=== PATIENT | female | born 1995 | race Caucasian/White ===

== ENCOUNTER 2019-05-05 14:00 | Emergency (ER) | payer MEDICARE, MEDICAID, SELFPAY ==
[2019-05-05 14:02] VITALS: BP 122/75; PULSE 83; RESP 15; TEMP 37.1; O2SAT 99; BMI 35.4
[2019-05-05 17:30] VITALS: BP 139/61; PULSE 77; RESP 16; O2SAT 100
--- NOTE | 2019-05-05 17:32 | ED_ITS ---
HPI - Abdominal Pain <Dara Eddy MD - Last Filed: 05/06/19 20:41> General Chief Complaint: Abdominal Pain Stated Complaint: LEFT SIDE PAIN Time Seen by Provider: 05/05/19 16:43 Source: patient Mode of arrival: ambulatory Limitations: no limitations History of Present Illness HPI narrative: Patient comes to the emergency department complaining of left lower quadrant pain that started about a week and half ago. Patient states it comes in waves and is not associated with any other symptoms. No dysuria. No hematuria. No constipation or diarrhea. No blood in her stools. No melena. No nausea or vomiting. No fevers. Patient has no history of diverticulitis. She does have a history of ovarian cysts, and the last time she had ultrasound was about 2 and half years ago. No other complaints at this time. Related Data Home Medications Medication Instructions Recorded Confirmed cetirizine [Zyrtec] 10 mg PO DAILY 05/05/19 05/06/19 Previous Rx's Medication Instructions Recorded ondansetron 4 mg PO Q6H PRN #7 tab 05/06/19 Allergies Allergy/AdvReac Type Severity Reaction Status Date / Time No Known Drug Allergies Allergy Verified 05/05/19 14:02 Review of Systems <Dara Eddy MD - Last Filed: 05/06/19 20:41> Constitutional Constitutional: Denies chills, Denies fatigue, Denies fever(s), Denies frequent falls, Denies lethargy and Denies weakness Eyes Eyes: Denies change in vision, Denies eye discharge, Denies irritation and Denies loss of vision ENT Ears, Nose, Mouth, and Throat: Denies change in voice, Denies dizziness, Denies neck pain, Denies sore throat and Denies throat swelling Cardiovascular Cardiovascular: Denies chest pain, Denies irregular heart rhythm, Denies lightheadedness, Denies palpitations, Denies dyspnea, Denies dyspnea on exertion and Denies orthopnea Respiratory Respiratory: Denies cough, Denies dyspnea, Denies dyspnea on exertion and Denies wheezing Gastrointestinal Gastrointestinal: Reports abdominal pain, Denies change in bowel habits, Denies diarrhea, Denies nausea and Denies vomiting Genitourinary Genitourinary: Denies hematuria, Denies flank pain, Denies urinary incontinence and Denies urinary urgency Musculoskeletal Musculoskeletal: Denies back pain, Denies muscle weakness, Denies neck pain, Denies numbness and Denies tingling Integumentary/Breasts Skin/Breast: Denies pruritus, Denies erythema, Denies rash and Denies wounds Neurologic Neurologic: Denies behavioral changes, Denies confusion, Denies dizziness, Denies frequent falls, Denies loss of vision, Denies numbness, Denies tingling and Denies weakness Psychiatric Psychiatric: Denies anxiety, Denies behavioral changes, Denies confusion, Denies depression, Denies homicidal ideation and Denies suicidal ideation Endocrine Endocrine: Denies fatigue, Denies flushing and Denies palpitations Hematologic/Lymphatic Hematologic/Lymphatic: Denies easy bruising Allergic/Immunologic Allergic/Immunologic: Denies urticaria, Denies throat swelling and Denies wheezing PFSH <Dara Eddy MD - Last Filed: 05/06/19 20:41> Medical History Healthy adult (Acute) Surgical History No pertinent past surgical history (Acute) Social History Smoking Status: Unknown if ever smoked Social History Smoking Status: Unknown if ever smoked Exam <Dara Eddy MD - Last Filed: 05/06/19 20:41> Initial Vital Signs Initial Vital Signs: Vital Signs Temperature 98.7 F 05/05/19 14:02 Pulse Rate 83 05/05/19 14:02 Respiratory Rate 15 05/05/19 14:02 Blood Pressure 122/75 05/05/19 14:02 Pulse Oximetry 99 05/05/19 14:02 Const General: cooperative and well developed Nutritional Appearance: well nourished Orientation: alert, awake, oriented x3 and not confused [facility] Head: normocephalic and atraumatic Ears: external ears normal and TM's normal bilaterally Nose: external nose normal and No nasal discharge Face and sinus: sinuses nontender, face symmetric, no sinus tenderness and No dry mucous membranes Mouth: oral mucosae normal and moist mucous membranes Teeth and gingiva: dentition normal Throat: tonsils normal and uvula midline Eyes General: appearance normal, both eyes and all related structures Eyelids: eyelids normal Conjunctivae: conjunctivae normal Sclera: sclerae normal Pupils: PERRL EOM: EOM intact bilaterally Neck Neck: normal visual inspection, trachea midline, No lymphadenopathy, No midline deformity and No JVD Lymphatic: No lymphedema Chest Chest: normal inspection of the chest Resp Effort & Inspection: normal respiratory effort, able to speak in complete sentences, no respiratory distress and no use of accessory muscles Auscultation: clear to auscultation bilaterally, no rales, no rhonchi and no wheezes Cardio Rate: regular rate Rhythm: regular rhythm Heart Sounds: no click, no gallops, no murmurs and no rubs Pulses: normal peripheral pulses GI Inspection: non-distended Palpation: soft, no hepatosplenomegaly, No guarding, No pulsatile mass and tender (Moderate, left pelvis) Back/Spine/Pelvis Back: No CVA tenderness Cervical Spine: cervical ROM normal and No pain with cervical ROM Thoracic/Lumbar Spine: thoracic and lumbar spine normal to inspection Skin General: no rashes or lesions noted, No jaundice and No petechiae Neuro General: alert, oriented x3, gait normal and no focal motor deficits Speech: speech normal Extrem General: full ROM, no clubbing, cyanosis or edema, no pedal edema and no calf tenderness Psych Appearance: well kempt Mental Status: mental status grossly normal Attitude: cooperative Thought Content: normal and suicidality Judgment: judgment good <Quiana Hernandez DO - Last Filed: 05/06/19 00:44> Initial Vital Signs Initial Vital Signs: Vital Signs Temperature 98.7 F 05/05/19 14:02 Pulse Rate 83 05/05/19 14:02 Respiratory Rate 15 05/05/19 14:02 Blood Pressure 122/75 05/05/19 14:02 Pulse Oximetry 99 05/05/19 14:02 Course <Dara Eddy MD - Last Filed: 05/06/19 20:41> Course Course Narrative: Patient was worked up with a POC urine, which was unremarkable. Ultrasound was ordered of the pelvis, and is pending at this time. Patient has been signed out to Dr. Hernandez, pending ultrasound. Orders Ordered: Discontinued Medications Ibuprofen (Advil) 800 mg PO NOW ONE Stop: 05/05/19 20:10 Last Admin: 05/05/19 20:15 Dose: 800 mg Documented by: MAYI Vital Signs Vital signs: Vital Signs - 8 hr 05/05/19 17:30 05/05/19 20:22 Pulse Rate 77 80 Respiratory Rate 16 17 Blood Pressure [Right Arm] 139/61 119/82 Pulse Oximetry 100 98 <Quiana Hernandez DO - Last Filed: 05/06/19 00:44> Orders Ordered: Discontinued Medications Ibuprofen (Advil) 800 mg PO NOW ONE Stop: 05/05/19 20:10 Last Admin: 05/05/19 20:15 Dose: 800 mg Documented by: MAYI Vital Signs Vital signs: Vital Signs - 8 hr 05/05/19 17:30 05/05/19 20:22 Pulse Rate 77 80 Respiratory Rate 16 17 Blood Pressure [Right Arm] 139/61 119/82 Pulse Oximetry 100 98 MDM - Abdominal Pain <Dara Eddy MD - Last Filed: 05/06/19 20:41> Lab Data Point of care testing: Point of Care Testing Test Results Negative Urine Dip Bedside Urine Glucose Negative Bedside Urine Bilirubin - Negative Bedside Urine Ketone - Negative Urine Specific [place] 1.030 Bedside Urine Occult Blood - Negative Bedside Urine pH 5.5 Bedside Urine Protein - Negative Bedside Urine Urobilinogen - Negative Bedside Urine Nitrite - Negative Bedside Urine Leukocytes - Negative Esterase <Quiana Hernandez DO - Last Filed: 05/06/19 00:44> Lab Data Point of care testing: Point of Care Testing Test Results Negative Urine Dip Bedside Urine Glucose Negative Bedside Urine Bilirubin - Negative Bedside Urine Ketone - Negative Urine Specific [place] 1.030 Bedside Urine Occult Blood - Negative Bedside Urine pH 5.5 Bedside Urine Protein - Negative Bedside Urine Urobilinogen - Negative Bedside Urine Nitrite - Negative Bedside Urine Leukocytes - Negative Esterase Imaging Data pelvic US: Radiologist's impression: PROCEDURE: US PELVIC COMPLETE INDICATIONS: LEFT PELVIC PAIN TECHNIQUE: Real-time scanning was performed of the pelvic organs, with image documentation. Additional endovaginal scanning was necessary due to incomplete visualization of the adnexal and endometrial structures by transabdominal scanning. COMPARISON: None. FINDINGS: Transabdominal scanning: Limited scanning through the kidneys shows no hydronephrosis. No pathologic free abdominal or pelvic fluid. Endovaginal scanning: Uterus: Uterus is normal in size at 6.2 x 3.3 x 3.3 cm. The endometrium measures 11 mm in combined thickness. Ovaries: The right ovary measures 2.4 x 1.8 x 1.5 cm and has a normal echotexture. There is expected right ovarian blood flow. The left ovary measures 6.7 x 6.9 x 5.8 c m. There is normal left ovarian blood flow. IMPRESSION: 1. Large left ovarian cyst. Annual sonographic surveillance recommended. 2. No findings to suggest ovarian torsion at this time. Normal bilateral Doppler waveforms. Dictated by: Debora Mckeon M.D. on 05/05/2019 at 19 MDM Narrative Medical decision making narrative: Patient signed out to me by Dr. Eddy I have done an independent exam and seen evaluated patient myself. She has mild left lower quadrant pain ultrasound positive for ovarian cyst. Recommended ibuprofen Tylenol if needed for pain and follow up with repeat ultrasound in a few months Discharge Plan Departure Patient Disposition: Home Clinical Impression: Ovarian cyst Qualifiers: Laterality: left Qualified Code(s): N83.202 - Unspecified ovarian cyst, left side Discharge Date/Time: 05/05/19 20:30 Instructions: Ovarian Cyst Activity Restrictions/Additional Instructions: *You have been diagnosed with left ovarian cyst *What to do: Recommend repeating ultrasound in 2-3 months *Continue to take medications as directed *Follow up with your primary care provider in 2-3 days *Return to ER if you should have increasing pain or any new, worsening or concerning symptoms Prescriptions: No Action cetirizine [Zyrtec] 10 mg Tablet 10 mg PO DAILY RF: 0 ondansetron 4 mg tablet,disintegrating 4 mg PO Q6H PRN (Reason: nausea and vomiting) Qty: 7 RF: 0
--- NOTE | 2019-05-05 17:40 | DI.US.S_ITS ---
PROCEDURE: US PELVIC COMPLETE INDICATIONS: LEFT PELVIC PAIN TECHNIQUE: Real-time scanning was performed of the pelvic organs, with image documentation. Additional endovaginal scanning was necessary due to incomplete visualization of the adnexal and endometrial structures by transabdominal scanning. COMPARISON: None. FINDINGS: Transabdominal scanning: Limited scanning through the kidneys shows no hydronephrosis. No pathologic free abdominal or pelvic fluid. Endovaginal scanning: Uterus: Uterus is normal in size at 6.2 x 3.3 x 3.3 cm. The endometrium measures 11 mm in combined thickness. Ovaries: The right ovary measures 2.4 x 1.8 x 1.5 cm and has a normal echotexture. There is expected right ovarian blood flow. The left ovary measures 6.7 x 6.9 x 5.8 cm. There is normal left ovarian blood flow. IMPRESSION: 1. Large left ovarian cyst. Annual sonographic surveillance recommended. 2. No findings to suggest ovarian torsion at this time. Normal bilateral Doppler waveforms. Dictated by: Debora Mckeon M.D. on 05/05/2019 at 19:47 Approved by: Debora Mckeon M.D. on 05/05/2019 at 19:49
[2019-05-05] MEDS: IBUPROFEN 400 MG TABLET 800 MG PO (20:15)
[2019-05-05 20:22] VITALS: BP 119/82; PULSE 80; RESP 17; O2SAT 98
== END 2019-05-05 20:30 | disposition home or self-care (01) ==
PROVIDERS: Emergency Provider Emergency Medicine
DX: N83.202 Unspecified ovarian cyst, left side (principal)
CPT/HCPCS: 76856; 81003; 81025; 99282; 99283

== ENCOUNTER 2019-05-06 10:01 | Emergency (ER) | payer MEDICARE, MEDICAID, SELFPAY ==
[2019-05-06 10:16] VITALS: BP 140/80; PULSE 74; RESP 18; TEMP 36.6; O2SAT 100; BMI 35.5
[2019-05-06 12:09] LABS: Add Manual Diff / Slide Review NO; Basophils Absolute Auto 100 /uL (0-100); Basophils Percent Auto 0.5 % (0-2); Eosinophils Absolute Auto 100 /uL (0-450); Eosinophils Percent Auto 0.9 % (2-4); Hematocrit 40.6 % (36-46); Hemoglobin 13.5 g/dL (12.0-16.0); Lymphocytes Absolute Auto 2500 /uL (1100-4500); Lymphocytes Percent Auto 19.5 % (25-40); Mean Corpuscular HGB Conc 33.3 % (30-36); Mean Corpuscular Volume 84.2 fL (80-100); Monocytes Absolute Auto 600 /uL (0-900); Neutrophils Absolute Auto 9400 /uL (1500-7000); Neutrophils Percent Auto 74.1 % (50-75); Platelet Count 292 X10^3/uL (150-400); Red Blood Cell Count 4.82 X10^6/uL (4.0-5.2); Red Cell Distribution Width 15.3 % (11.6-14.8); White Blood Cell Count 12.7 X10^3/uL (4.5-11.0)
[2019-05-06] MEDS: ONDANSETRON 4 MG/2 ML INJ IV (12:10)
[2019-05-06] MEDS: SODIUM CHLORIDE 0.9% 1,000 ML 1000 ML IV (12:10)
[2019-05-06 12:14] LABS: Alanine Aminotransferase 19 IU/L (9-52); Albumin 4.2 g/dL (3.5-5.0); Albumin Globulin Ratio 1.3 (1.0-2.8); Alkaline Phosphatase 81 U/L (38-126); Aspartate Aminotransferase 27 IU/L (14-36); Bilirubin Total 0.9 mg/dL (0.2-1.3); Blood Urea Nitrogen 11 mg/dL (7-17); Calcium 9.3 mg/dL (8.4-10.2); Carbon Dioxide 22 mmol/L (22-32); Chloride 107 mmol/L (98-107); Estimated Glomerular Filt Rate > 60.0 mL/min (>60); Globulin 3.3 g/dL (1.7-4.1); Glucose 90 mg/dL (70-100); HEMOLYSIS 17 (0-50); Sodium 141 mmol/L (137-145); Total Protein 7.5 g/dL (6.3-8.2)
--- NOTE | 2019-05-06 12:17 | ED_ITS ---
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 She states she vomited about 4 times and was unable to keep liquids down. She also states the pain in her abdomen that she was seen for yesterday has significantly decreased. She denies any abdominal pain at this time, fevers, chills, diarrhea, constipation, dysuria, blood in her urine, shortness breath, chest pain, or sick contacts. She states she does work at [employer] and thinks she may have caught something at work. Patient also states that she has not had problems with her intestinal tract since 2011, she sees a GI specialist yearly and has schedule appointment in the next week for yearly follow-up. She states the symptoms do not feel like they did in the past when she needed surgery. MD complaint: nausea and vomiting Related Data Home Medications Medication Instructions Recorded Confirmed cetirizine [Zyrtec] 10 mg PO DAILY 05/05/19 05/06/19 Previous Rx's Medication Instructions Recorded ondansetron 4 mg PO Q6H PRN #7 tab 05/06/19 Allergies Allergy/AdvReac Type Severity Reaction Status Date / Time No Known Drug Allergies Allergy Verified 05/05/19 14:02 Review of Systems <KAREN Jean-Baptiste - Last Filed: 05/06/19 23:25> Review of Systems Narrative: REVIEW OF SYSTEMS: GENERAL: Denies fever, chills, malaise, or wt. loss. HENT: No head trauma, sore throat, or dysphagia. EYES: No loss of vision, double vision, eye pain, or irritation. CARDIOVASCULAR: No chest pain, palpitations, or orthopnea. RESPIRATORY: No shortness of breath or cough. GASTROINTESTINAL: Complains of nausea and vomiting, see HPI GENITOURINARY: No flank pain, urinary incontinence, hesitancy, frequency, or dysuria. No vaginal discharge or dyspareunia. Denies concerns for STIs MUSCULOSKELETAL: No pain, weakness, or trauma. INTEGUMENTARY: No rash, lesions, or pruritus. NEURO: No numbness, tingling, memory loss, confusion, or headaches. PSYCH: No behavior or mood changes. PFSH <KAREN Jean-Baptiste - Last Filed: 05/06/19 23:25> Medical History Healthy adult (Acute) Ovarian cyst (Acute) Surgical History No pertinent past surgical history (Acute) Social History Smoking Status: Unknown if ever smoked Social History Smoking Status: Unknown if ever smoked Exam <KAREN Jean-Baptiste - Last Filed: 05/06/19 23:25> Initial Vital Signs Initial Vital Signs: Vital Signs Temperature 97.8 F 05/06/19 10:16 Pulse Rate 74 05/06/19 10:16 Respiratory Rate 18 05/06/19 10:16 Blood Pressure 140/80 05/06/19 10:16 Pulse Oximetry 100 05/06/19 10:16 PHYSICAL EXAMINATION: GENERAL: Well groomed, alert, and cooperative. Answers questions promptly and appropriately. Vital signs noted. HENT: Normocephalic, atraumatic. Hearing intact. Oral mucosa is pink and moist. EYES: Conjunctiva pink, sclera white, no periorbital swelling. CARDIOVASCULAR: S1 and S2 sounds normal. Regular rate and rhythm, no murmurs, clicks, or bruits. No pedal edema. RESPIRATORY: Normal respiratory rate, trachea midline, airway patent. No stridor, nasal flaring or accessory muscle use. Lungs are clear in all [place] without wheeze, rhonchi, or crackles. GASTROINTESTINAL: Bowel sounds normoactive. Abdomen is soft and non-tender. No organomegaly, no palpable masses. GENITALURINARY: No flank tenderness. MUSCULOSKELETAL: Normal gait and coordination. Equal tone and mass bilaterally. EXTREMITIES: CMS intact, no pedal edema. SKIN: Warm, dry, soft, appropriate color for ethnicity. No lesions, rashes, or wounds. NEURO: Alert and Oriented X 3. Good coordination. No ataxia, or sensory deficits, or cognitive issues. PSYCH: Appropriate affect and mood. <Dara Eddy MD - Last Filed: 05/09/19 01:58> Initial Vital Signs Initial Vital Signs: Vital Signs Temperature 97.8 F 05/06/19 10:16 Pulse Rate 74 05/06/19 10:16 Respiratory Rate 18 05/06/19 10:16 Blood Pressure 140/80 05/06/19 10:16 Pulse Oximetry 100 05/06/19 10:16 Course <KAREN Jean-Baptiste - Last Filed: 05/06/19 23:25> Orders Ordered: Discontinued Medications Sodium Chloride (Normal Saline 0.9%) 1,000 mls @ 1,000 mls/hr IV BOLUS ONE Stop: 05/06/19 13:04 Last Infusion: 05/06/19 13:10 Dose: 0 mls/hr Documented by: Admin: 05/06/19 12:10 Dose: 1,000 mls/hr Documented by: LUTHER Ketorolac Tromethamine (Toradol) 30 mg IM NOW ONE Stop: 05/06/19 13:12 Last Admin: 05/06/19 13:35 Dose: Not Given Documented by: LUTHER Ketorolac Tromethamine (Toradol) 30 mg IV NOW ONE Stop: 05/06/19 13:17 Last Admin: 05/06/19 13:31 Dose: 30 mg Documented by: LUTHER Ondansetron HCl (Zofran) 4 mg IV NOW ONE Stop: 05/06/19 12:06 Last Admin: 05/06/19 12:10 Dose: 4 mg Documented by: LUTHER Reevaluation(s) Reevaluation #1: Patient reported resolution of symptoms after IV fluids administration of Zofran. She stated she was ready to go after this. Additio leo, she was able to tolerate foods and fluids p.o. Consultations Consultation #1: Patient staffed Dr. Eddy. Vital Signs Vital signs: Vital Signs - 8 hr 05/06/19 10:16 Temperature 97.8 F Pulse Rate 74 Respiratory Rate 18 Blood Pressure 140/80 Pulse Oximetry 100 <Dara Eddy MD - Last Filed: 05/09/19 01:58> Orders Ordered: Discontinued Medications Sodium Chloride (Normal Saline 0.9%) 1,000 mls @ 1,000 mls/hr IV BOLUS ONE Stop: 05/06/19 13:04 Last Infusion: 05/06/19 13:10 Dose: 0 mls/hr Documented by: Admin: 05/06/19 12:10 Dose: 1,000 mls/hr Documented by: LUTHER Ketorolac Tromethamine (Toradol) 30 mg IM NOW ONE Stop: 05/06/19 13:12 Last Admin: 05/06/19 13:35 Dose: Not Given Documented by: LUTHER Ketorolac Tromethamine (Toradol) 30 mg IV NOW ONE Stop: 05/06/19 13:17 Last Admin: 05/06/19 13:31 Dose: 30 mg Documented by: LUTHER Ondansetron HCl (Zofran) 4 mg IV NOW ONE Stop: 05/06/19 12:06 Last Admin: 05/06/19 12:10 Dose: 4 mg Documented by: LUTHER Vital Signs Vital signs: Vital Signs - 8 hr 05/06/19 10:16 Temperature 97.8 F Pulse Rate 74 Respiratory Rate 18 Blood Pressure 140/80 Pulse Oximetry 100 MDM - Nausea/Vomiting/Diarrhea <KAREN Jean-Baptiste - Last Filed: 05/06/19 23:25> Medical Records Attestation: I reviewed the patient's medical records. Lab Data Attestation: I reviewed the patient's lab results. Result diagrams: 05/06/19 11:50 05/06/19 11:50 Labs: Lab Results 05/06/19 05/06/19 Range/Units 11:50 11:50 WBC 12.7 H (4.5-11.0) X10^3/uL RBC 4.82 (4.0-5.2) X10^6/uL Hgb 13.5 (12.0-16.0) g/dL Hct 40.6 (36-46) % MCV 84.2 (80-100) fL MCH 28.0 (26-34) PG MCHC 33.3 (30-36) % RDW 15.3 H (11.6-14.8) % Plt Count 292 (150-400) X10^3/uL Neut % (Auto) 74.1 (50-75) % Lymph % (Auto) 19.5 L (25-40) % [place] % (Auto) 5.0 (3-14) % Eos % (Auto) 0.9 L (2-4) % Baso % (Auto) 0.5 (0-2) % Neut # (Auto) 9400 H (2433-3692) /uL Lymph # (Auto) 2500 (8908-1479) /uL [place] # (Auto) 600 (0-900) /uL Eos # (Auto) 100 (0-450) /uL Baso # (Auto) 100 (0-100) /uL Sodium 141 (137-145) mmol/L Potassium 4.0 (3.4-5.1) mmol/L Chloride 107 (98-107) mmol/L Carbon Dioxide 22 (22-32) mmol/L BUN 11 (7-17) mg/dL Creatinine 0.50 L (0.52-1.04) mg/dL Estimated GFR > 60.0 (>60) mL/min BUN/Creatinine Ratio 22.0 (6-22) Glucose 90 (70-100) mg/dL Calcium 9.3 (8.4-10.2) mg/dL Total Bilirubin 0.9 (0.2-1.3) mg/dL AST 27 (14-36) IU/L ALT 19 (9-52) IU/L Alkaline Phosphatase 81 (38-126) U/L Total Protein 7.5 (6.3-8.2) g/dL Albumin 4.2 (3.5-5.0) g/dL Globulin 3.3 (1.7-4.1) g/dL Albumin/Globulin Ratio 1.3 (1.0-2.8) Point of Care Testing Test Results Negative Urine Dip Bedside Urine Glucose Negative Bedside Urine Bilirubin - Negative Bedside Urine Ketone ++ 40 Urine Specific [place] 1.025 Bedside Urine Occult Blood - Negative Bedside Urine pH 6.0 Bedside Urine Protein +/- 15 Bedside Urine Urobilinogen +/- 1mg Bedside Urine Nitrite - Negative Bedside Urine Leukocytes - Negative Esterase MDM Narrative Medical decision making narrative: Differential includes (most likely) gastroenteritis (possibly viral in nature) due to short duration of vomiting, resolution of symptoms, lack of abdominal pain, and slight elevation of white blood cells. Less likely urinary tract infection (negative urinalysis), gallbladder issues (normal labs, no abdominal pain), appendicitis (lack of systemic symptoms such as fever are high elevated white blood cell count, of abdominal pain), and ovarian cyst (as noted previously in history, however this is unlikely to cause vomiting). Strict return precautions given and follow-up instructions discussed. She does not appear acutely ill and was able to ambulate out of the ER without difficulty. <Dara Eddy MD - Last Filed: 05/09/19 01:58> Lab Data Labs: Lab Results 05/06/19 05/06/19 Range/Units 11:50 11:50 WBC 12.7 H (4.5-11.0) X10^3/uL RBC 4.82 (4.0-5.2) X10^6/uL Hgb 13.5 (12.0-16.0) g/dL Hct 40.6 (36-46) % MCV 84.2 (80-100) fL MCH 28.0 (26-34) PG MCHC 33.3 (30-36) % RDW 15.3 H (11.6-14.8) % Plt Count 292 (150-400) X10^3/uL Neut % (Auto) 74.1 (50-75) % Lymph % (Auto) 19.5 L (25-40) % [place] % (Auto) 5.0 (3-14) % Eos % (Auto) 0.9 L (2-4) % Baso % (Auto) 0.5 (0-2) % Neut # (Auto) 9400 H (8741-6624) /uL Lymph # (Auto) 2500 (1179-3575) /uL [place] # (Auto) 600 (0-900) /uL Eos # (Auto) 100 (0-450) /uL Baso # (Auto) 100 (0-100) /uL Sodium 141 (137-145) mmol/L Potassium 4.0 (3.4-5.1) mmol/L Chloride 107 (98-107) mmol/L Carbon Dioxide 22 (22-32) mmol/L BUN 11 (7-17) mg/dL Creatinine 0.50 L (0.52-1.04) mg/dL Estimated GFR > 60.0 (>60) mL/min BUN/Creatinine Ratio 22.0 (6-22) Glucose 90 (70-100) mg/dL Calcium 9.3 (8.4-10.2) mg/dL Total Bilirubin 0.9 (0.2-1.3) mg/dL AST 27 (14-36) IU/L ALT 19 (9-52) IU/L Alkaline Phosphatase 81 (38-126) U/L Total Protein 7.5 (6.3-8.2) g/dL Albumin 4.2 (3.5-5.0) g/dL Globulin 3.3 (1.7-4.1) g/dL Albumin/Globulin Ratio 1.3 (1.0-2.8) Point of Care Testing Test Results Negative Urine Dip Bedside Urine Glucose Negative Bedside Urine Bilirubin - Negative Bedside Urine Ketone ++ 40 Urine Specific [place] 1.025 Bedside Urine Occult Blood - Negative Bedside Urine pH 6.0 Bedside Urine Protein +/- 15 Bedside Urine Urobilinogen +/- 1mg Bedside Urine Nitrite - Negative Bedside Urine Leukocytes - Negative Esterase Discharge Plan Departure Patient Disposition: Home Clinical Impression: Vomiting Qualifiers: Vomiting type: unspecified Vomiting Intractability: unspecified Nausea presence: with nausea Qualified Code(s): R11.2 - Nausea with vomiting, unspec ified Discharge Date/Time: 05/06/19 14:17 Instructions: DI for Vomiting -- Adult Activity Restrictions/Additional Instructions: Thank you for entrusting me with your care today. As discussed, your urine test did not show infection, and her labs did not show any concerning signs for abdominal organ dysfunction. I suspect that your vomiting may be caused by a virus. I prescribed do a nausea medication that you may take to help decrease her symptoms. Follow up with her primary care provider in the next week for further evaluation if needed. Return to the emergency department if he develops chest pain, shortness of breath, high fevers > 101.9F, syncope, severe abdominal pain, or blood in your stool. Prescriptions: New ondansetron 4 mg tablet,disintegrating 4 mg PO Q6H PRN (Reason: nausea and vomiting) Qty: 7 RF: 0 No Action cetirizine [Zyrtec] 10 mg Tablet 10 mg PO DAILY RF: 0 Referrals: Pratima Meyers ARNP [Primary Care Provider] -
[2019-05-06] MEDS: KETOROLAC 60 MG/2 ML VIAL 30 MG IV (13:31)
--- NOTE | 2019-05-06 13:34 | PC.NURSE ---
pt is drinking fluids and tolerated a sandwich. states she is feeling better.
[2019-05-06 14:09] VITALS: BP 119/71; PULSE 71; RESP 18; TEMP 37.2; O2SAT 100
== END 2019-05-06 14:17 | disposition home or self-care (01) ==
PROVIDERS: Emergency Provider Nurse Practitioner; PCP Nurse Practitioner Gerontology
DX: R11.2 Nausea with vomiting, unspecified (principal)
CPT/HCPCS: 36591; 80053; 81003; 81025; 85025; 96361; 96374; 96375; 99283; 99284; J1885; J2405

== ENCOUNTER 2019-06-13 07:18 | Emergency (ER) | payer MEDICARE, MEDICAID, SELFPAY ==
[2019-06-13 07:37] VITALS: BP 120/68; PULSE 50; RESP 12; TEMP 35.9; O2SAT 99
--- NOTE | 2019-06-13 07:49 | ED_ITS ---
HPI - Extremity Injury (Lower) General Chief Complaint: Extremity Injury, Lower Stated Complaint: left ankle pain -has old injury on this ankle Time Seen by Provider: 06/13/19 07:52 Source: patient Mode of arrival: Ambulatory Limitations: no limitations History of Present Illness HPI Narrative: This is a 24-year-old female who comes in with complaint of pain in her ankle and foot. Patient states she has also had a small spot on her 3rd toe. Initially it was a scab she picked it off and there is a little open spot. She states actually been improving and recurring increasingly less painful. Patient has not noticed increasing redness, discharge or signs of infection. Patient states that did seem to alter her stride somewhat. She just finished shift overnight while standing on her feet. She works at [employer] She states she was changing how she walked and this may have affected how her foot was feeling. She has not had any other trauma recently. She has not had any other injuries, she denies any bony tenderness. She does have a history of tendonitis but sounds like her Achilles heel. She states she was in a walking boot on and off for about a year and quit using it. She states it does not quite feel the same. She does have some tenderness in the Achilles but also on the lateral side of the foot. No numbness, no tingling, no other sensations. She denies other past medical issues including diabetes. Related Data Home Medications Medication Instructions Recorded Confirmed cetirizine [Zyrtec] 10 mg PO DAILY 05/05/19 05/06/19 Previous Rx's Medication Instructions Recorded ondansetron 4 mg PO Q6H PRN #7 tab 05/06/19 Allergies Allergy/AdvReac Type Severity Reaction Status Date / Time No Known Drug Allergies Allergy Verified 05/05/19 14:02 Review of Systems Review of Systems ROS Unobtainable: All systems reviewed & are unremarkable except as noted in HPI and below PFSH Medical History Healthy adult (Acute) Ovarian cyst (Inactive) Surgical History No pertinent past surgical history (Acute) Social History Smoking Status: Unknown if ever smoked Social History Smoking Status: Unknown if ever smoked Exam Narrative Exam Narrative: GENERAL: Alert and oriented x three, moderately obese, well- appearing female in no acute distress. HEENT: Head normocephalic, atraumatic, EOMI, pupils reactive, face symmetric, moist mucous membranes NECK: Supple, full range of motion CARDIOVASCULAR: Regular rate and rhythm without murmurs, rubs or gallops. EXTREMITIES: Normal range of motion, no clubbing or edema appreciated right versus left. Patient has no bony tenderness. Ankle testing for joint laxity is normal. Patient is nontender with palpation of the Achilles. She has normal range of motion. She has normal sensation throughout with 2+ dorsalis pedis and tibialis. She has a very small superficial ulceration just adjacent to her nail on her 3rd toe that appears clean and dry otherwise with out any infectious signs. Neurovascularly intact NEUROLOGICAL: Cranial nerves II through XII grossly intact. Moving all extremities SKIN: Warm, dry, no petechiae, no rashes or lesions other than described above Initial Vital Signs Initial Vital Signs: Vital Signs Temperature 96.7 F L 06/13/19 07:37 Pulse Rate 50 L 06/13/19 07:37 Respiratory Rate 12 06/13/19 07:37 Blood Pressure 120/68 06/13/19 07:37 Pulse Oximetry 99 06/13/19 07:37 Course Vital Signs Vital signs: Vital Signs - 8 hr 06/13/19 07:37 Temperature 96.7 F L Pulse Rate 50 L Respiratory Rate 12 Blood Pressure 120/68 Pulse Oximetry 99 MDM - Extremity Injury (Lower) MDM Narrative Medical decision making narrative: Discussed with patient she does not have any bony tenderness and has not had any recent trauma that suspicious for fracture. We discussed potential causes including changing her stride secondary to pain in her toe. Some that this may have caused a strain or sprain of her foot. She could be having recurrence of her tendinitis or other possibilities. She does not have any signs of significant infection and plan for continued wound care. Discharge Plan Departure Patient Disposition: Home Clinical Impression: Foot sprain, Open wound of toe Discharge Date/Time: 06/13/19 08:30 Instructions: DI for Foot Sprain Activity Restrictions/Additional Instructions: Follow-up with primary care or orthopedic surgery if your symptoms are not improving in the next 7-10 days. I would recommend Tylenol up to a 1000 mg every 8 hours and/or ibuprofen up to 800 mg every 8 hours as needed. Use warm compresses 3 times daily for 20 minutes to the affected area. Wound Care: Keep wound(s) clean and dry. Wash daily with soap and water only. Do not use over the counter products (alcohol or peroxide)on the wounds unless instructed by a physician. You may use triple antibiotic ointment twice daily to the affected area. If wound condition worsens (increased/expanding redness, developing fluid blisters, or worsening pain), either contact your doctor for an urgent re- assessment , or return to the Emergency Department. Return to the Emergency Department for any new or worsening symptoms. Return if fever greater than 100.4 Fahrenheit, increased swelling, increasing pain or worsening symptoms such as increased discharge or spreading redness. New weakness, numbness, loss of sensation, rapidly increasing swelling, new bruising or other new or concerning symptoms. Prescriptions: No Action cetirizine [Zyrtec] 10 mg Tablet 10 mg PO DAILY RF: 0 ondansetron 4 mg tablet,disintegrating 4 mg PO Q6H PRN (Reason: nausea and vomiting) Qty: 7 RF: 0 Referrals: Pratima Meyers ARNP [Primary Care Provider] - Stand Alone Forms: Work Release Note
== END 2019-06-13 08:30 | disposition home or self-care (01) ==
PROVIDERS: Emergency Provider Emergency Medicine; PCP Nurse Practitioner Gerontology
DX: S93.402A Sprain of unspecified ligament of left ankle, initial encounter (principal); S91.105A Unspecified open wound of left lesser toe(s) without damage to nail, initial encounter
CPT/HCPCS: 99282

== ENCOUNTER 2019-06-21 09:10 | Emergency (ER) | payer MEDICARE, MEDICAID, SELFPAY ==
[2019-06-21 09:21] VITALS: BP 113/57; PULSE 77; RESP 16; TEMP 36.7; O2SAT 100; BMI 34.3
--- NOTE | 2019-06-21 09:29 | ED.LOWEXIN ---
HPI - Extremity Injury (Lower) General Chief Complaint: Extremity Injury, Lower Stated Complaint: pain in left foot toes x5 years Time Seen by Provider: 06/21/19 09:24 Source: patient Mode of arrival: Ambulatory Limitations: no limitations History of Present Illness HPI Narrative: 24-year-old otherwise healthy female here for evaluation of pain in the 2nd toe of the left foot. She states has been going on for the past several days/weeks. This is caused a increase in the pain in her left ankle which was an injury 5 years ago. She has had ingrown toenails in the past. She is concerned she has an ingrown toenail in her left 2nd toe. Related Data Home Medications Medication Instructions Recorded Confirmed cetirizine [Zyrtec] 10 mg PO DAILY 05/05/19 05/06/19 Previous Rx's Medication Instructions Recorded ondansetron 4 mg PO Q6H PRN #7 tab 05/06/19 tramadol [Ultram] 50 mg PO Q6H PRN #7 tab 06/21/19 Allergies Allergy/AdvReac Type Severity Reaction Status Date / Time No Known Drug Allergies Allergy Verified 06/21/19 09:21 Review of Systems Constitutional Constitutional: Denies fever(s) and Denies weakness Musculoskeletal Musculoskeletal: Denies tingling Comments: Left ankle pain Integumentary/Breasts Comments: Redness around the left 2nd toe Neurologic Neurologic: Denies tingling, Denies paresthesias and Denies weakness Hematologic/Lymphatic Hematologic/Lymphatic: Denies easy bleeding and Denies easy bruising Patient History Medical History Healthy adult (Acute) Ovarian cyst (Inactive) Social History Smoking Status: Unknown if ever smoked alcohol intake frequency: holidays/special occasions only Substance Use Type: does not use Exam Initial Vital Signs Initial Vital Signs: Vital Signs Temperature 98.0 F 06/21/19 09:21 Pulse Rate 77 06/21/19 09:21 Respiratory Rate 16 06/21/19 09:21 Blood Pressure 113/57 L 06/21/19 09:21 Pulse Oximetry 100 06/21/19 09:21 Cardio Pulses: dorsalis pedis present on the left Skin Other: Redness on the lateral aspect of the left 2nd toe. Neuro Sensory Exam: no sensory deficits noted Extrem Other: Full range of motion of left ankle Psych Appearance: grossly normal and well kempt Procedures [facility] Procedure Name of Procedure: Ingrown toenail removal Side (if applicable): left Location: Left 2nd toe Time out performed: Yes Technique/Description of procedure performed: Left 2nd toe digital block performed with 4 cc of 1% lidocaine without epinephrine. An elevator was used to raise the toenail of the left 2nd toe from the nail bed. It was removed with a pair hemostats. Patient tolerated procedure: Well and No complications Complications: none Course Orders Ordered: Discontinued Medications Bacitracin (Bacitracin) 1 applic TOP NOW ONE Stop: 06/21/19 09:52 Lidocaine HCl (Xylocaine 1% (Pf)) 4 ml INJ NOW ONE Stop: 06/21/19 09:30 Last Admin: 06/21/19 09:42 Dose: 2 ml Documented by: LISA Tramadol HCl (Ultram) 50 mg PO NOW ONE Stop: 06/21/19 09:52 Vital Signs Vital signs: Vital Signs - 8 hr 06/21/19 09:21 Temperature 98.0 F Pulse Rate 77 Respiratory Rate 16 Blood Pressure 113/57 L Pulse Oximetry 100 MDM - Extremity Injury (Lower) MDM Narrative Medical decision making narrative: Patient with history and physical exam consistent with an ingrown toenail the left 2nd toe. It was removed as described above. No indication for antibiotics. Will provide pain control. She was given care instructions. She expressed understanding and agreement plan. Patient was informed prior to removing the toe that there is the potential that her toe would not grow back looking ?normal? she was also informed that this would not necessarily eliminate the possibility of this happening again. She expressed understanding and agreement this. Discharge Plan Departure Patient Disposition: Home Clinical Impression: Ingrowing toenail of left foot Ankle pain, left Qualifiers: Chronicity: chronic Qualified Code(s): M25.572 - Pain in left ankle and joints of left foot Instructions: Ingrown Toenail Removal Activity Restrictions/Additional Instructions: You can shower like normal. You can use soap and water like normal. Take the medication as directed. Return to the emergency department for any new or worsening symptoms Prescriptions: New tramadol [Ultram] 50 mg tablet 50 mg PO Q6H PRN (Reason: pain) Qty: 7 RF: 0 No Action cetirizine [Zyrtec] 10 mg Tablet 10 mg PO DAILY RF: 0 ondansetron 4 mg tablet,disintegrating 4 mg PO Q6H PRN (Reason: nausea and vomiting) Qty: 7 RF: 0 Referrals: Pratima Meyers ARNP [Primary Care Provider] -
[2019-06-21] MEDS: LIDOCAINE 1% (PF) 4 ML INJ (09:42)
--- NOTE | 2019-06-21 09:52 | PC.NURSE ---
pt has chronic wound to right foot. states she keeps bumping it and causing it to reopen.
[2019-06-21] MEDS: BACITRACIN OINT 0.9 GM PCKT 1 APPLIC TOP (09:57)
[2019-06-21] MEDS: TRAMADOL 50 MG TABLET PO (09:57)
[2019-06-21 10:02] VITALS: BP 123/69; PULSE 64; RESP 15; O2SAT 100
--- NOTE | 2019-06-21 10:08 | PC.NURSE ---
bacitracin, nonadherent dressing, and yue placed to patients toe.
== END 2019-06-21 10:06 | disposition home or self-care (01) ==
PROVIDERS: Emergency Provider Emergency Medicine; PCP Nurse Practitioner Gerontology
DX: L60.0 Ingrowing nail (principal)
CPT/HCPCS: 11750; 99282; 99283

== ENCOUNTER 2019-07-05 18:07 | Emergency (ER) | payer MEDICARE, MEDICAID, SELFPAY ==
[2019-07-05 18:13] VITALS: BP 114/41; PULSE 81; RESP 14; TEMP 36.8; O2SAT 100
--- NOTE | 2019-07-05 18:23 | ED_ITS ---
HPI - Headache General Chief Complaint: Headache Stated Complaint: headache, nausea Time Seen by Provider: 07/05/19 18:07 Mode of arrival: Ambulatory Limitations: no limitations History of Present Illness HPI Narrative: 24-year-old female nonsmoker with history of allergies presents with her significant other in the chief complaint of a vague headache over the course of the day. At its worst it was a 5/10 and currently is a 3/10. It got better with some Motrin. Though she chronically has headaches she states that this 1 lasted a bit longer than normal so she wanted to be checked. She denies any recent injuries. She has had no fever or chills. She denies any neck pain. She denies any focal neurologic findings such as blurred vision, trouble with speech nor numbness, weakness or tingling of her extremities. She denies much in the way of provocation or palliation. She denies any palliation. Patient states she has not been drinking much in the way of water and she recently stopped drinking caffeine. MD Complaint: headache Onset (ago): day(s) Onset description: gradual Location: left Severity: moderate Quality: aching Relieving factors: nothing Exacerbating factors: none Associated symptoms: none Treatments prior to arrival: acetaminophen and ibuprofen Related Data Home Medications Medication Instructions Recorded Confirmed cetirizine [Zyrtec] 10 mg PO DAILY 05/05/19 06/21/19 Previous Rx's Medication Instructions Recorded ondansetron 4 mg PO Q6H PRN #7 tab 05/06/19 tramadol [Ultram] 50 mg PO Q6H PRN #7 tab 06/21/19 Allergies Allergy/AdvReac Type Severity Reaction Status Date / Time No Known Drug Allergies Allergy Verified 06/21/19 09:21 Review of Systems Constitutional Constitutional: Denies chills, Denies fatigue, Denies fever(s), Denies frequent falls, Reports headache(s), Denies lethargy and Denies weakness Eyes Eyes: Denies change in vision, Denies eye discharge, Denies irritation and Denies loss of vision ENT Ears, Nose, Mouth, and Throat: Denies change in voice, Denies dizziness, Reports headache(s), Denies neck pain, Denies sore throat and Denies throat swelling Cardiovascular Cardiovascular: Denies chest pain, Denies irregular heart rhythm, Denies lightheadedness, Denies palpitations, Denies dyspnea, Denies dyspnea on exertion and Denies orthopnea Respiratory Respiratory: Denies cough, Denies dyspnea, Denies dyspnea on exertion and Denies wheezing Gastrointestinal Gastrointestinal: Denies abdominal pain, Denies change in bowel habits, Denies diarrhea, Denies nausea and Denies vomiting Genitourinary Genitourinary: Denies hematuria, Denies flank pain, Denies urinary incontinence and Denies urinary urgency Musculoskeletal Musculoskeletal: Denies back pain, Denies muscle weakness, Denies neck pain, Denies numbness and Denies tingling Integumentary/Breasts Skin/Breast: Denies pruritus, Denies erythema, Denies rash and Denies wounds Neurologic Neurologic: Denies behavioral changes, Denies confusion, Denies dizziness, Denies frequent falls, Reports headache(s), Denies loss of vision, Denies numbness, Denies tingling and Denies weakness Psychiatric Psychiatric: Denies anxiety, Denies behavioral changes, Denies confusion, Denies depression, Denies homicidal ideation and Denies suicidal ideation Endocrine Endocrine: Denies fatigue, Denies flushing and Denies palpitations Hematologic/Lymphatic Hematologic/Lymphatic: Denies easy bruising Allergic/Immunologic Allergic/Immunologic: Denies urticaria, Denies throat swelling and Denies wheezing Patient History Social History Smoking Status: Never smoker alcohol intake frequency: holidays/special occasions only Substance Use Type: does not use Exam Narrative Exam Narrative: GENERAL: [24] year old patient appears stated age. Well- nourished, well-developed patient, in mild distress. HEAD: Atraumatic. Normocephalic. EYES: Pupils equal round and reactive. Extraocular motions intact. No scleral icterus. No injection or drainage. ENT: Nose without bleeding, purulent drainage. Throat without erythema, tonsil lar hypertrophy or exudate. Airway patent. NECK: Trachea midline. Non tender CARDIOVASCULAR: Regular rate and rhythm without murmurs, gallops, or rubs. RESPIRATORY: Clear to auscultation. Breath sounds equal bilaterally. No wheezes, rales, or rhonchi. GASTROINTESTINAL: Abdomen soft, non-tender, nondistended. EXTREMITIES: No edema or joint tenderness. BACK: Nontender without deformity or crepitance. No flank tenderness. NEURO: AOx3. SKIN: No rash or erythema of visible areas NIH Stroke Scale 1a. LOC: Patient is alert and keenly responsive (0) 1b. LOC Questions: Patient answers both LOC questions accurately (0) 1c. LOC Commands: Patient performs both tasks correctly (0) 2. Best Gaze: Normal (0) 3. Visual: No visual loss (0) 4. Facial palsy: Normal symmetrical movements (0) 5. Motor arm: No drift (0) 6. Motor leg: No drift (0) 7. Limb ataxia: Absent (0) 8. Sensory: Normal (0) 9. Best language: No aphasia; normal (0) 10. Dysarthria: Normal (0) 11. Extinction and inattention: No abnormality (0) NIHSS: 0 Initial Vital Signs Initial Vital Signs: Vital Signs Temperature 98.3 F 07/05/19 18:13 Pulse Rate 81 07/05/19 18:13 Respiratory Rate 14 07/05/19 18:13 Blood Pressure 114/41 L 07/05/19 18:13 Pulse Oximetry 100 07/05/19 18:13 Course Course Course Narrative: Patient feels much better after the above-stated therapies Orders Ordered: Discontinued Medications Sodium Chloride (Normal Saline 0.9%) 1,000 mls @ 1,000 mls/hr IV BOLUS ONE Stop: 07/05/19 19:28 Last Infusion: 07/05/19 19:29 Dose: 0 mls/hr Documented by: Admin: 07/05/19 18:46 Dose: 1,000 mls/hr Documented by: VICTOR HUGO Metoclopramide HCl (Reglan) 10 mg IV NOW ONE Stop: 07/05/19 18:30 Last Admin: 07/05/19 18:46 Dose: 10 mg Documented by: VICTOR HUGO Vital Signs Vital signs: Vital Signs - 8 hr 07/05/19 18:13 Temperature 98.3 F Pulse Rate 81 Respiratory Rate 14 Blood Pressure 114/41 L Pulse Oximetry 100 Discharge Plan Departure Patient Disposition: Home Clinical Impression: Headache Qualifiers: Headache type: unspecified Headache chronicity pattern: acute headache Intractability: not intractable Qualified Code(s): R51 - Headache Discharge Date/Time: 07/05/19 19:30 Instructions: DI for Headache Activity Restrictions/Additional Instructions: *You have been diagnosed with [acute headache, likely from dehydration and caffeine cessation] *What to do: *Take medications as directed: Tylenol or Motrin for pain *Follow up with your primary care provider in 2-3 days, call for an appointment. Let them know you were seen in the Emergency Department and that we ask that you be seen in follow up *Return to ER if you should have any new, worsening or concerning symptoms Prescriptions: No Action tramadol [Ultram] 50 mg tablet 50 mg PO Q6H PRN (Reason: pain) Qty: 7 RF: 0 cetirizine [Zyrtec] 10 mg Tablet 10 mg PO DAILY RF: 0 ondansetron 4 mg tablet,disintegrating 4 mg PO Q6H PRN (Reason: nausea and vomiting) Qty: 7 RF: 0 Referrals: Pratima Meyers ARNP [Primary Care Provider] -
[2019-07-05] MEDS: SODIUM CHLORIDE 0.9% 1,000 ML 1000 ML IV (18:46)
[2019-07-05] MEDS: METOCLOPRAMIDE 10 MG/2 ML INJ IV (18:46)
[2019-07-05 19:29] VITALS: BP 105/61; PULSE 64; RESP 18; O2SAT 99
== END 2019-07-05 19:30 | disposition home or self-care (01) ==
PROVIDERS: Emergency Provider Emergency Medicine; Family Provider Nurse Practitioner Gerontology; PCP Nurse Practitioner Gerontology
DX: R51 Headache (principal)
CPT/HCPCS: 36415; 96361; 96374; 99283; 99284; J2765

== ENCOUNTER 2019-07-25 18:44 | Emergency (ER) | payer MEDICARE, MEDICAID, SELFPAY ==
[2019-07-25 18:50] VITALS: BP 120/70; PULSE 67; RESP 16; TEMP 36.3; O2SAT 100
--- NOTE | 2019-07-25 19:11 | DI.RAD.S_ITS ---
PROCEDURE: XR ABDOMEN MIN 2V INDICATIONS: abdominal pain. History of An syndrome status post colectomy. TECHNIQUE: 2 views of the abdomen were acquired. COMPARISON: None. FINDINGS: Surgical changes and devices: None. Bowel: There is prominent gaseous distention of the small bowel measuring up to approximately 6.6 cm in diameter. No definite air-fluid levels. No pneumoperitoneum. Soft tissues: No suspicious abdominal calcifications. Bones: No suspicious bony abnormalities. IMPRESSION: 1. Gas distention of small bowel loops without air-fluid levels. The findings are nonspecific and may represent obstruction or an ileus. Further evaluation may be obtained with CT if clinically indicated. Dictated by: Michael Maciel M.D. on 07/25/2019 at 20:00 Approved by: Michael Maciel M.D. on 07/25/2019 at 20:02
[2019-07-25 19:41] LABS: Add Manual Diff / Slide Review NO; Basophils Absolute Auto 0 /uL (0-100); Basophils Percent Auto 0.4 % (0-2); Eosinophils Absolute Auto 200 /uL (0-450); Eosinophils Percent Auto 1.7 % (2-4); Hematocrit 37.9 % (36-46); Hemoglobin 12.8 g/dL (12.0-16.0); Lymphocytes Absolute Auto 2800 /uL (1100-4500); Lymphocytes Percent Auto 30.5 % (25-40); Mean Corpuscular HGB Conc 33.8 % (30-36); Mean Corpuscular Hemoglobin 28.7 PG (26-34); Mean Corpuscular Volume 84.9 fL (80-100); Monocytes Absolute Auto 600 /uL (0-900); Monocytes Percent Auto 6.5 % (3-14); Neutrophils Absolute Auto 5700 /uL (1500-7000); Neutrophils Percent Auto 60.9 % (50-75); Platelet Count 255 X10^3/uL (150-400); Red Blood Cell Count 4.47 X10^6/uL (4.0-5.2); Red Cell Distribution Width 14.9 % (11.6-14.8); White Blood Cell Count 9.3 X10^3/uL (4.5-11.0)
[2019-07-25] MEDS: ONDANSETRON 4 MG/2 ML INJ IV (20:01)
[2019-07-25 20:02] LABS: Alanine Aminotransferase 18 IU/L (<35); Albumin 4.2 g/dL (3.5-5.0); Albumin Globulin Ratio 1.4 (1.0-2.8); Alkaline Phosphatase 75 U/L (38-126); Amylase 67 U/L (30-110); Aspartate Aminotransferase 21 IU/L (14-36); BUN Creatinine Ratio 14.3 (6-22); Bilirubin Total 0.6 mg/dL (0.2-1.3); Blood Urea Nitrogen 10 mg/dL (7-17); Calcium 9.5 mg/dL (8.4-10.2); Carbon Dioxide 24 mmol/L (22-32); Chloride 108 mmol/L (98-107); Estimated Glomerular Filt Rate > 60.0 mL/min (>60); Glucose 84 mg/dL (70-100); HEMOLYSIS < 15 (0-50); Lipase 52 U/L (23-300); Potassium 3.7 mmol/L (3.4-5.1); Sodium 139 mmol/L (137-145); Total Protein 7.2 g/dL (6.3-8.2)
--- NOTE | 2019-07-25 20:11 | DI.CT.S_ITS ---
PROCEDURE: CT ABDOMEN PELVIS W CON INDICATIONS: 24 year-old female with history of An syndrome status post prior colectomy presenting with abdominal pain and possible obstruction on x-ray. TECHNIQUE: After the administration of intravenous contrast, 5 mm thick sections acquired from the diaphragm to the symphysis. 5 mm coronal and sagittal reformats were acquired. For radiation dose reduction, the following was used: automated exposure control, adjustment of mA and/or kV according to patient size. COMPARISON: [facility], , XR ABDOMEN MIN 2V, 07/25/2019, 19:33. FINDINGS: Image quality: Excellent. ABDOMEN: Lung bases: Lung bases are clear. Heart size is normal. Solid organs: Evaluation of the liver demonstrates no focal hepatic lesions. The gallbladder demonstrates multiple filling defects compatible with gallstones without gallbladder wall thickening or pericholecystic fluid. Biliary system is non-dilated. Pancreas enhances normally. No peripancreatic fat stranding or fluid collections. No pancreatic duct dilatation. The spleen is normal in size. No adrenal nodules. Kidneys demonstrate no hydronephrosis. Peritoneum and bowel: The colon is surgically absent. There is an ileorectal anastomosis demonstrated in the pelvis. There is mild distention of the small bowel measuring up to 2.7 cm with scattered air-fluid levels. No definite focal transition point. The findings likely represent an ileus or gastroenteritis. No free fluid or air. Nodes and vessels: No retroperitoneal or mesenteric adenopathy by size criteria. Aorta and inferior vena cava are normal in size. Miscellaneous: No ventral hernias. PELVIS: Genitourinary: Bladder wall thickness is normal. The uterus and ovaries appear within normal size limits. Miscellaneous: No inguinal hernias or adenopathy. Bones: No suspicious bony lesions. No vertebral body compression fractures. IMPRESSION: 1. Mild gas distention of the small bowel with scattered air-fluid levels without a discrete transition point. Findings likely represent an ileus or gastroenteritis without definite obstruction. 2. Cholelithiasis without CT evidence of cholecystitis. Dictated by: Michael Maciel M.D. on 07/25/2019 at 20:43 Approved by: Michael Maciel M.D. on 07/25/2019 at 20:48
[2019-07-25] MEDS: SODIUM CHLORIDE 0.9% 1,000 ML 1000 ML IV (20:18)
--- NOTE | 2019-07-25 21:34 | ED_ITS ---
HPI - Abdominal Pain <EL Pelletier-BC - Last Filed: 07/25/19 21:44> General Chief Complaint: Abdominal Pain Stated Complaint: STOMACH PAINS FEELING OF GOING TO BATHROOM BUT NOT Time Seen by Provider: 07/25/19 19:02 Source: patient and family Mode of arrival: Ambulatory Limitations: no limitations History of Present Illness HPI narrative: The patient is a 24-year-old female nonsmoker with history of An syndrome who presents with a chief complaint of abdominal cramping, feeling like she has to have a bowel movement in the not. She states she has had a colon surgically removed a long time ago. She denies any fevers, complains of nausea but no vomiting. She has been eating and drinking. This started after she ate dinner at a casino last night. She denies any fevers charles es any dysuria urgency or frequency or possibility of . She has not taken anything to feel better. Related Data Home Medications Medication Instructions Recorded Confirmed cetirizine [Zyrtec] 10 mg PO DAILY 05/05/19 06/21/19 Previous Rx's Medication Instructions Recorded ondansetron 4 mg PO Q6H PRN #7 tab 05/06/19 tramadol [Ultram] 50 mg PO Q6H PRN #7 tab 06/21/19 Allergies Allergy/AdvReac Type Severity Reaction Status Date / Time No Known Drug Allergies Allergy Verified 06/21/19 09:21 Review of Systems <EL Pelletier-BC - Last Filed: 07/25/19 21:44> Review of Systems Narrative: GENERAL: Denies chills, fatigue, malaise, fever, sweats. HEENT: Denies sinus pain, ear pain, sore throat, difficulty swallowing, dizzines s. RESPIRATORY: Denies dyspnea, cough, wheezing, hemoptysis, sputum. CARDIOVASCULAR: Denies chest pain, palpitations, orthopnea, edema, GASTROINTESTINAL: See HPI : Denies dysuria, frequency, incontinence, hematuria, urinary retention. MUSCULOSKELETAL: denies weakness, joint pain, or bony pain SKIN: Denies rash, skin lesions, or other NEUROLOGIC: Denies weakness, headache, numbness, change in speech, confusion, seizures, incoordination. PSYCHIATRIC: No concerning psychosocial issues. 12 point review of systems is negative except for those stated above Patient History <JUANJO Pelletier - Last Filed: 07/25/19 21:44> Medical History Healthy adult (Acute) Ovarian cyst (Inactive) Surgical History (Updated 07/25/19 @ 21:42 by JUANJO Pelletier) History of abdominal surgery (Acute) No pertinent past surgical history (Acute) Social History Smoking Status: Never smoker alcohol intake frequency: holidays/special occasions only Substance Use Type: does not use Exam <JUANJO Pelletier - Last Filed: 07/25/19 21:44> Narrative Exam Narrative: GENERAL: This is a well-nourished, well-developed patient, in no acute distress HEAD: Atraumatic. Normocephalic. No temporal or scalp tenderness. EYES: Pupils equal round and reactive. Extraocular motions intact. No scleral icterus. No injection or drainage. ENT: Nose without bleeding, purulent drainage or septal hematoma. Throat without erythema, tonsillar hypertrophy or exudate. Uvula midline. Airway patent. NECK: Trachea midline. No JVD or lymphadenopathy. Supple, nontender, no meningeal signs. CARDIOVASCULAR: Regular rate and rhythm without murmurs, gallops, or rubs. RESPIRATORY: Clear to auscultation. Breath sounds equal bilaterally. No wheezes, rales, or rhonchi. No cough. No increased respiratory effort. No accessory muscle use. GASTROINTESTINAL: Abdomen soft, diffusely tender, nondistended. No hepato- splenomegaly, or palpable masses. No guarding. Soft obese abdomen. Active bowel sounds all 4 quadrants EXTREMITIES: No clubbing, cyanosis, or edema. No joint tenderness, effusion, or edema noted. BACK: Nontender without deformity or crepitance. No flank tenderness. NEURO: AOx3. SKIN: No rash or erythema. Initial Vital Signs Initial Vital Signs: Vital Signs Temperature 97.4 F L 07/25/19 18:50 Pulse Rate 67 07/25/19 18:50 Respiratory Rate 16 07/25/19 18:50 Blood Pressure 120/70 07/25/19 18:50 Pulse Oximetry 100 07/25/19 18:50 <Pa Osborne DO - Last Filed: 07/26/19 03:18> Initial Vital Signs Initial Vital Signs: Vital Signs Temperature 97.4 F L 07/25/19 18:50 Pulse Rate 67 07/25/19 18:50 Respiratory Rate 16 07/25/19 18:50 Blood Pressure 120/70 07/25/19 18:50 Pulse Oximetry 100 07/25/19 18:50 Course <EL Pelletier-BC - Last Filed: 07/25/19 21:44> Orders Ordered: ED Orders 07/25/19 19:11 XR abdomen min 2V Stat 07/25/19 19:30 Amylase Stat Complete Blood Count AUTO DIFF Stat Comprehensive Metabolic Panel Stat Lipase Stat 07/25/19 20:11 CT abdomen pelvis w con Stat Discontinued Medications Sodium Chloride (Normal Saline 0.9%) 1,000 mls @ 1,000 mls/hr IV BOLUS ONE Stop: 07/25/19 20:08 Last Infusion: 07/25/19 22:02 Dose: 0 mls/hr Documented by: Admin: 07/25/19 20:18 Dose: 1,000 mls/hr Documented by: SUSHANT Ondansetron HCl (Zofran) 4 mg IV NOW ONE Stop: 07/25/19 19:10 Last Admin: 07/25/19 20:01 Dose: 4 mg Documented by: SUSHANT Ondansetron HCl (Zofran Odt Prepack) 1 bottle MISC SEEINSTR ONE Stop: 07/25/19 21:24 Last Admin: 07/25/19 21:50 Dose: 1 bottle Documented by: SUSHANT Vital Signs Vital signs: Vital Signs - 8 hr 07/25/19 22:00 Pulse Rate 83 Respiratory Rate 17 Blood Pressure 110/63 Pulse Oximetry 99 <Pa Osborne DO - Last Filed: 07/26/19 03:18> Orders Ordered: ED Orders 07/25/19 19:11 XR abdomen min 2V Stat 07/25/19 19:30 Amylase Stat Complete Blood Count AUTO DIFF Stat Comprehensive Metabolic Panel Stat Lipase Stat 07/25/19 20:11 CT abdomen pelvis w con Stat Discontinued Medications Sodium Chloride (Normal Saline 0.9%) 1,000 mls @ 1,000 mls/hr IV BOLUS ONE Stop: 07/25/19 20:08 Last Infusion: 07/25/19 22:02 Dose: 0 mls/hr Documented by: Admin: 07/25/19 20:18 Dose: 1,000 mls/hr Documented by: SUSHANT Ondansetron HCl (Zofran) 4 mg IV NOW ONE Stop: 07/25/19 19:10 Last Admin: 07/25/19 20:01 Dose: 4 mg Documented by: SUSHANT Ondansetron HCl (Zofran Odt Prepack) 1 bottle MISC SEEINSTR ONE Stop: 07/25/19 21:24 Last Admin: 07/25/19 21:50 Dose: 1 bottle Documented by: SUSHANT Vital Signs Vital signs: Vital Signs - 8 hr 07/25/19 22:00 Pulse Rate 83 Respiratory Rate 17 Blood Pressure 110/63 Pulse Oximetry 99 MDM - Abdominal Pain <EL Pelletier- - Last Filed: 07/25/19 21:44> Lab Data Result diagrams: 07/25/19 19:30 07/25/19 19:30 Labs: Lab Results 07/25/19 07/25/19 07/25/19 Range/Units 19:30 19:30 19:30 WBC 9.3 (4.5-11.0) X10^3/uL RBC 4.47 (4.0-5.2) X10^6/uL Hgb 12.8 (12.0-16.0) g/dL Hct 37.9 (36-46) % MCV 84.9 (80-100) fL MCH 28.7 (26-34) PG MCHC 33.8 (30-36) % RDW 14.9 H (11.6-14.8) % Plt Count 255 (150-400) X10^3/uL Neut % (Auto) 60.9 (50-75) % Lymph % (Auto) 30.5 (25-40) % [place] % (Auto) 6.5 (3-14) % Eos % (Auto) 1.7 L (2-4) % Baso % (Auto) 0.4 (0-2) % Neut # (Auto) 5700 (8376-6740) /uL Lymph # (Auto) 2800 (9652-7323) /uL [place] # (Auto) 600 (0-900) /uL Eos # (Auto) 200 (0-450) /uL Baso # (Auto) 0 (0-100) /uL Sodium 139 (137-145) mmol/L Potassium 3.7 (3.4-5.1) mmol/L Chloride 108 H (98-107) mmol/L Carbon Dioxide 24 (22-32) mmol/L BUN 10 (7-17) mg/dL Creatinine 0.70 (0.52-1.04) mg/dL Estimated GFR > 60.0 (>60) mL/min BUN/Creatinine Ratio 14.3 (6-22) Glucose 84 (70-100) mg/dL Calcium 9.5 (8.4-10.2) mg/dL Total Bilirubin 0.6 (0.2-1.3) mg/dL AST 21 (14-36) IU/L ALT 18 (<35) IU/L Alkaline Phosphatase 75 (38-126) U/L Total Protein 7.2 (6.3-8.2) g/dL Albumin 4.2 (3.5-5.0) g/dL Globulin 3.0 (1.7-4.1) g/dL Albumin/Globulin Ratio 1.4 (1.0-2.8) Amylase 67 (30-110) U/L Lipase 52 (23-300) U/L Point of care testing: Point of Care Testing Test Results Negative Urine Dip Bedside Urine Glucose Negative Bedside Urine Bilirubin - Negative Bedside Urine Ketone - Negative Urine Specific [place] 1.030 Bedside Urine Occult Blood - Negative Bedside Urine pH 6.0 Bedside Urine Protein +/- 15 Bedside Urine Urobilinogen - Negative Bedside Urine Nitrite - Negative Bedside Urine Leukocytes - Negative Esterase Imaging Data Abdominal x-ray: Radiologist's impression: [address] [address] XRay Report Signed Patient: Yennifer Drummond RMR#: [id number] : 1995Acct:[id number] Age/Sex: 24 / FDate of Service: 07/25/19 Loc: ED Accession Number: [id number] Procedure: XR abdomen min 2V Ordering Provider: Carola Medel- PROCEDURE: XR ABDOMEN MIN 2V INDICATIONS: abdominal pain. History of An syndrome status post colectomy. TECHNIQUE: 2 views of the abdomen were acquired. COMPARISON: None. FINDINGS: Surgical changes and devices: None. Bowel: There is prominent gaseous distention of the small bowel measuring up to approximately 6.6 cm in diameter. No definite air-fluid levels. No pneumoperitoneum. Soft tissues: No suspicious abdominal calcifications. Bones: No suspicious bony abnormalities. IMPRESSION: 1. Gas distention of small bowel loops without air-fluid levels. The findings are nonspecific and may represent obstruction or an ileus. Further evaluation may be obtained with CT if clinically indicated. Dictated by: Michael Maciel M.D. on 07/25/2019 at 20:00 Approved by: Michael Maciel M.D. on 07/25/2019 at 20:02 CT scan - abdomen: Radiologist's impression: [place] [address] CT Scan Report Signed Patient: Yennifer Drummond R#: [id number] : 1995Acct:[id number] Age/Sex: 24 / FDate of Service: 07/25/19 Loc: ED Accession Number: [id number] Procedure: CT abdomen pelvis w con Ordering Provider: Carola Medel [facility] PROCEDURE: CT ABDOMEN PELVIS W CON INDICATIONS: 24 year-old female with history of An syndrome status post prior colectomy presenting with abdominal pain and possible obstruction on x-ray. TECHNIQUE: After the administration of intravenous contrast, 5 mm thick sections acquired from the diaphragm to the symphysis. 5 mm coronal and sagittal reformats were acquired. For radiation dose reduction, the following was used: automated exposure control, adjustment of mA and/or kV according to patient size. COMPARISON: [facility], CR, XR ABDOMEN MIN 2V, 07/25/2019, 19:33. FINDINGS: Image quality: Excellent. ABDOMEN: Lung bases: Lung bases are clear. Heart size is normal. Solid organs: Evaluation of the liver demonstrates no focal hepatic lesions. The gallbladder demonstrates multiple filling defects compatible with gallstones without gallbladder wall thickening or pericholecystic fluid. Biliary system is non- dilated. Pancreas enhances normally. No peripancreatic fat stranding or fluid collections. No pancreatic duct dilatation. The spleen is normal in size. No adrenal nodules. Kidneys demonstrate no hydronephrosis. Peritoneum and bowel: The colon is surgically absent. There is an ileorectal anastomosis demonstrated in the pelvis. There is mild distention of the small bowel measuring up to 2.7 cm with scattered air-fluid levels. No definite focal transition point. The findings likely represent an ileus or gastroenteritis. No free fluid or air. Nodes and vessels: No retroperitoneal or mesenteric adenopathy by size criteria. Aorta and inferior vena cava are normal in size. Miscellaneous: No ventral hernias. PELVIS: Genitourinary: Bladder wall thickness is normal. The uterus and ovaries appear within normal size limits. Miscellaneous: No inguinal hernias or adenopathy. Bones: No suspicious bony lesions. No vertebral body compression fractures. IMPRESSION: 1. Mild gas distention of the small bowel with scattered air-fluid levels without a discrete transition point. Findings likely represent an ileus or gas troenteritis without definite obstruction. 2. Cholelithiasis without CT evidence of cholecystitis. Dictated by: Michael Maciel M.D. on 07/25/2019 at 20:43 Approved by: Michael Maciel M.D. on 07/25/2019 at 20:48 [facility] Narrative Medical decision making narrative: The patient is a 24-year-old female who prese nts with a chief complaint of general abdominal distress since eating out at the casino last night. She denies any fevers vomiting. She has a overall relatively benign abdominal exam, the x-rays indicating possible SBO. CT was taken to evaluate for SBO, and came back with ileus and/or gastroenteritis. Gastroenteritis is more likely given the patient's exam with no guarding and a nonacute abdomen. She was given fluids and Zofran in the emergency department. I discharged her with a take-home pack of Zofran. Encourage PCP follow-up, pushing fluids, simple diet and coming back to the emergency department for any acute concerns such as inability keep down fluids, abdominal pain with fever etc. Patient and have no questions or concerns upon discharge and state understanding of return precautions and follow-up care. <Pa Osborne DO - Last Filed: 07/26/19 03:18> Lab Data Labs: Lab Results 07/25/19 07/25/19 07/25/19 Range/Units 19:30 19:30 19:30 WBC 9.3 (4.5-11.0) X10^3/uL RBC 4.47 (4.0-5.2) X10^6/uL Hgb 12.8 (12.0-16.0) g/dL Hct 37.9 (36-46) % MCV 84.9 (80-100) fL MCH 28.7 (26-34) PG MCHC 33.8 (30-36) % RDW 14.9 H (11.6-14.8) % Plt Count 255 (150-400) X10^3/uL Neut % (Auto) 60.9 (50-75) % Lymph % (Auto) 30.5 (25-40) % [place] % (Auto) 6.5 (3-14) % Eos % (Auto) 1.7 L (2-4) % Baso % (Auto) 0.4 (0-2) % Neut # (Auto) 5700 (9661-0035) /uL Lymph # (Auto) 2800 (0878-1536) /uL [place] # (Auto) 600 (0-900) /uL Eos # (Auto) 200 (0-450) /uL Baso # (Auto) 0 (0-100) /uL Sodium 139 (137-145) mmol/L Potassium 3.7 (3.4-5.1) mmol/L Chloride 108 H (98-107) mmol/L Carbon Dioxide 24 (22-32) mmol/L BUN 10 (7-17) mg/dL Creatinine 0.70 (0.52-1.04) mg/dL Estimated GFR > 60.0 (>60) mL/min BUN/Creatinine Ratio 14.3 (6-22) Glucose 84 (70-100) mg/dL Calcium 9.5 (8.4-10.2) mg/dL Total Bilirubin 0.6 (0.2-1.3) mg/dL AST 21 (14-36) IU/L ALT 18 (<35) IU/L Alkaline Phosphatase 75 (38-126) U/L Total Protein 7.2 (6.3-8.2) g/dL Albumin 4.2 (3.5-5.0) g/dL Globulin 3.0 (1.7-4.1) g/dL Albumin/Globulin Ratio 1.4 (1.0-2.8) Amylase 67 (30-110) U/L Lipase 52 (23-300) U/L Point of care testing: Point of Care Testing Test Results Negative Urine Dip Bedside Urine Glucose Negative Bedside Urine Bilirubin - Negative Bedside Urine Ketone - Negative Urine Specific [place] 1.030 Bedside Urine Occult Blood - Negative Bedside Urine pH 6.0 Bedside Urine Protein +/- 15 Bedside Urine Urobilinogen - Negative Bedside Urine Nitrite - Negative Bedside Urine Leukocytes - Negative Esterase Discharge Plan Departure Patient Disposition: Home Clinical Impression: Gastroenteritis Abdominal pain Qualifiers: Abdominal location: generalized Qualified Code(s): R10.84 - Generalized abdominal pain Discharge Date/Time: 07/25/19 22:02 Instructions: DI for Viral Gastroenteritis -- Adult, DI for Abdominal Pain- Adult, Gastroenteritis Diet Activity Restrictions/Additional Instructions: Please follow up with primary care provider in the next few days. Your CT scan is suspicious for gastroenteritis. This could be due to the casino food you ate for dinner last night. Please push fluids. Eat a simple diet. Please come back to the emergency department for any acute concerns such as inability keep down fluids, abdominal pain with fever etc Prescriptions: No Action tramadol [Ultram] 50 mg tablet 50 mg PO Q6H PRN (Reason: pain) Qty: 7 RF: 0 cetirizine [Zyrtec] 10 mg Tablet 10 mg PO DAILY RF: 0 ondansetron 4 mg tablet,disintegrating 4 mg PO Q6H PRN (Reason: nausea and vomiting) Qty: 7 RF: 0 Referrals: Pratima Meyers ARNP [Primary Care Provider] - Stand Alone Forms: Work Release Note
[2019-07-25] MEDS: ONDANSETRON 4 MG ODT PREPACK 1 BOTTLE MISC (21:50)
[2019-07-25 22:00] VITALS: BP 110/63; PULSE 83; RESP 17; O2SAT 99
== END 2019-07-25 22:02 | disposition home or self-care (01) ==
PROVIDERS: Emergency Medicine; Emergency Provider Nurse Practitioner Family; Family Provider Nurse Practitioner Gerontology; PCP Nurse Practitioner Gerontology
DX: K52.9 Noninfective gastroenteritis and colitis, unspecified (principal); R10.84 Generalized abdominal pain
CPT/HCPCS: 36415; 74019; 74177; 80053; 81003; 81025; 82150; 83690; 85025; 96361; 96374; 99283; 99284; J2405

== ENCOUNTER 2019-08-01 09:04 | Emergency (ER) | payer MEDICARE, MEDICAID, SELFPAY ==
[2019-08-01 09:08] VITALS: BP 121/76; PULSE 73; RESP 16; TEMP 36.6; O2SAT 100; BMI 34.3
[2019-08-01] MEDS: IBUPROFEN 400 MG TABLET 800 MG PO (10:48)
--- NOTE | 2019-08-04 16:08 | ED.EXTPRO ---
HPI - Extremity Problem General Chief complaint: Extremity Injury, Upper Stated complaint: R hand pain Time Seen by Provider: 08/01/19 09:48 Source: patient Mode of arrival: Ambulatory Limitations: no limitations History of Present Illness HPI Narrative: Patient comes emergency department complaining of right hand pain, mainly in her 2nd and 3rd MCP joints, for about 4 days. Patient denies injury. 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 However, she has not noticed a problem this ever before. She denies any other complaints this time. No other joint aches. No fevers or chills. No body aches. No recent illness. No redness or stiffness of the joints. Related Data Home Medications Medication Instructions Recorded Confirmed cetirizine [Zyrtec] 10 mg PO DAILY 05/05/19 08/01/19 albuterol sulfate [Ventolin HFA] 1 puff INHALATION DIRECTED 08/01/19 08/01/19 Previous Rx's Medication Instructions Recorded ondansetron 4 mg PO Q6H PRN #7 tab 05/06/19 tramadol [Ultram] 50 mg PO Q6H PRN #7 tab 06/21/19 Allergies Allergy/AdvReac Type Severity Reaction Status Date / Time No Known Drug Allergies Allergy Verified 08/01/19 09:08 Review of Systems Constitutional Constitutional: Denies chills, Denies fatigue, Denies fever(s), Denies frequent falls, Denies lethargy and Denies weakness Eyes Eyes: Denies change in vision, Denies eye discharge, Denies irritation and Denies loss of vision ENT Ears, Nose, Mouth, and Throat: Denies change in voice, Denies dizziness, Denies neck pain, Denies sore throat and Denies throat swelling Cardiovascular Cardiovascular: Denies chest pain, Denies irregular heart rhythm, Denies lightheadedness, Denies palpitations, Denies dyspnea, Denies dyspnea on exertion and Denies orthopnea Respiratory Respiratory: Denies cough, Denies dyspnea, Denies dyspnea on exertion and Denies wheezing Gastrointestinal Gastrointestinal: Denies abdominal pain, Denies change in bowel habits, Denies diarrhea, Denies nausea and Denies vomiting Genitourinary Genitourinary: Denies hematuria, Denies flank pain, Denies urinary incontinence and Denies urinary urgency Musculoskeletal Musculoskeletal: Denies back pain, Denies muscle weakness, Denies neck pain, Denies numbness and Denies tingling Comments: Right hand joint pain Integumentary/Breasts Skin/Breast: Denies pruritus, Denies erythema, Denies rash and Denies wounds Neurologic Neurologic: Denies behavioral changes, Denies confusion, Denies dizziness, Denies frequent falls, Denies loss of vision, Denies numbness, Denies tingling and Denies weakness Psychiatric Psychiatric: Denies anxiety, Denies behavioral changes, Denies confusion, Denies depression, Denies homicidal ideation and Denies suicidal ideation Endocrine Endocrine: Denies fatigue, Denies flushing and Denies palpitations Hematologic/Lymphatic Hematologic/Lymphatic: Denies easy bruising Allergic/Immunologic Allergic/Immunologic: Denies urticaria, Denies throat swelling and Denies wheezing Patient History Medical History Healthy adult (Acute) Ovarian cyst (Inactive) Surgical History History of abdominal surgery (Acute) No pertinent past surgical history (Acute) Social History Smoking Status: Never smoker alcohol intake frequency: holidays/special occasions only Substance Use Type: does not use Exam Initial Vital Signs Initial Vital Signs: Vital Signs Temperature 97.8 F 08/01/19 09:08 Pulse Rate 73 08/01/19 09:08 Respiratory Rate 16 08/01/19 09:08 Blood Pressure 121/76 08/01/19 09:08 Pulse Oximetry 100 08/01/19 09:08 Const General: cooperative and well developed Nutritional Appearance: well nourished Orientation: alert, awake, oriented x3 and not confused [facility] Head: normocephalic and atraumatic Ears: external ears normal Nose: external nose normal and No nasal discharge Face and sinus: face symmetric and No dry mucous membranes Mouth: oral mucosae normal and moist mucous membranes Teeth and gingiva: dentition normal Eyes General: appearance normal, both eyes and all related structures Eyelids: eyelids normal Conjunctivae: conjunctivae normal Sclera: sclerae normal Pupils: PERRL EOM: EOM intact bilaterally Neck Neck: normal visual inspection, trachea midline, No lymphadenopathy, No midline deformity and No JVD Lymphatic: No lymphedema Resp Effort & Inspection: normal respiratory effort, able to speak in complete sentences, no respiratory distress and no use of accessory muscles Cardio Rate: regular rate Rhythm: regular rhythm Pulses: normal peripheral pulses Back/Spine/Pelvis Back: No CVA tenderness Cervical Spine: cervical ROM normal and No pain with cervical ROM Thoracic/Lumbar Spine: thoracic and lumbar spine normal to inspection Skin General: no rashes or lesions noted, No jaundice and No petechiae Neuro General: alert, oriented x3, gait normal and no focal motor deficits Speech: speech normal Extrem General: full ROM Other: Patient has no edema or erythema over her right 2nd and 3rd MCP joints. There is no deformity of the joints. She has full range of motion of the fingers, though it is noted that she has extreme laxity in her finger joints with extension. Course Course Course Narrative: Patient was given ibuprofen the emergency department. The patient had not had a specific injury, and had no other symptoms besides the to sore joints. I did not feel that a further workup was indicated at this time. I have discussed with the patient that she may be prone to some joint issues, given her extreme laxity, and we have discussed home management of the symptoms. We have also discussed the usual indications for return, should her symptoms fail to resolve or should they worsen. Orders Ordered: Discontinued Medications Ibuprofen (Advil) 800 mg PO NOW ONE Stop: 08/01/19 10:33 Last Admin: 08/01/19 10:48 Dose: 800 mg Documented by: [facility] - Extremity (Nontraumatic) Medical Records Attestation: I reviewed the patient's medical records. Discharge Plan Departure Patient Disposition: Home Clinical Impression: Arthralgia Qualifiers: Joint pain location: hand Laterality: right Qualified Code(s): M25.541 - Pain in joints of right hand Discharge Date/Time: 08/01/19 11:01 Instructions: DI for Arthralgia Prescriptions: No Action tramadol [Ultram] 50 mg tablet 50 mg PO Q6H PRN (Reason: pain) Qty: 7 RF: 0 albuterol sulfate [Ventolin HFA] 90 mcg/actuation HFA aerosol inhaler 1 puff INHALATION DIRECTED RF: 0 cetirizine [Zyrtec] 10 mg Tablet 10 mg PO DAILY RF: 0 ondansetron 4 mg tablet,disintegrating 4 mg PO Q6H PRN (Reason: nausea and vomiting) Qty: 7 RF: 0 Referrals: Pratima Meyers ARNP [Primary Care Provider] -
== END 2019-08-01 11:01 | disposition home or self-care (01) ==
PROVIDERS: Emergency Provider Emergency Medicine; Family Provider Nurse Practitioner Gerontology; PCP Nurse Practitioner Gerontology
DX: M25.541 Pain in joints of right hand (principal)
CPT/HCPCS: 99282

== ENCOUNTER 2019-10-25 18:41 | Emergency (ER) | payer OTHER, MEDICAID, SELFPAY ==
[2019-10-25 18:49] VITALS: BP 137/70; PULSE 84; RESP 16; TEMP 36.6; O2SAT 100
--- NOTE | 2019-10-25 19:45 | ED.ABDPAIN ---
HPI - Abdominal Pain General Chief Complaint: Abdominal Pain Stated Complaint: sharp pain in side on and off Time Seen by Provider: 10/25/19 19:44 Source: patient Mode of arrival: Ambulatory Limitations: no limitations History of Present Illness HPI narrative: This is a 24-year-old female who comes to the emergency department complaint of sharp pain on both sides of her abdomen intermittently for the last couple weeks. She states usually it is a quick stab and then it is gone sometimes in the last couple seconds or a minute or 2 and then it resolves. It can be in the left or right side she describes is in the side of the abdomen not really the flank or front. It does not radiate elsewhere. She does not have fevers, she has not had nausea or vomiting. The symptoms resolved quickly she has not taken anything for pain. She denies any issues with bowel movements, no black or bloody stools. No frequency, dysuria urgency. No vaginal bleeding or discharge. 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 No other abdominal or prior surgeries. She denies any other medical issues. She states she does not take any medications, no tobacco, alcohol or illicit. She is accompanied by her . She states that her and her are trying to get they contacted the [facility] who told them that she should come in to be evaluated. Related Data Home Medications Medication Instructions Recorded Confirmed cetirizine [Zyrtec] 10 mg PO DAILY 05/05/19 08/01/19 albuterol sulfate [Ventolin HFA] 1 puff INHALATION DIRECTED 08/01/19 08/01/19 Previous Rx's Medication Instructions Recorded ondansetron 4 mg PO Q6H PRN #7 tab 05/06/19 tramadol [Ultram] 50 mg PO Q6H PRN #7 tab 06/21/19 Allergies Allergy/AdvReac Type Severity Reaction Status Date / Time No Known Drug Allergies Allergy Verified 08/01/19 09:08 Review of Systems Review of Systems ROS Unobtainable: All systems reviewed & are unremarkable except as noted in HPI and below Patient History Medical History Healthy adult (Acute) Ovarian cyst (Inactive) Surgical History History of abdominal surgery (Acute) No pertinent past surgical history (Acute) Social History Smoking Status: Never smoker Smoking Status: Never smoker alcohol intake frequency: holidays/special occasions only Substance Use Type: does not use Exam Narrative Exam Narrative: GENERAL: Alert and oriented x three,obese well-appearing female in mild distress HEENT: Head normocephalic, atraumatic, EOMI, pupils reactive, face symmetric, moist mucous membranes NECK: Supple, full range of motion CARDIOVASCULAR: Regular rate and rhythm without murmurs, rubs or gallops. RESPIRATORY: Breath sounds equal bilaterally, no wheezes rales or rhonchi. ABDOMEN: Soft, nontender to palpation. Normoactive bowel sounds all 4 quadrants. No guarding or rebound, rigidity, no mass. Nondistended. : No CVA tenderness EXTREMITIES: Normal range of motion, no clubbing or edema. Neurovascularly intact NEUROLOGICAL: Cranial nerves II through XII grossly intact. Moving all extremities SKIN: Warm, dry, no petechiae, no rashes or lesions. Initial Vital Signs Initial Vital Signs: Vital Signs Temperature 97.9 F 10/25/19 18:49 Pulse Rate 84 10/25/19 18:49 Respiratory Rate 16 10/25/19 18:49 Blood Pressure 137/70 10/25/19 18:49 Pulse Oximetry 100 10/25/19 18:49 Course Vital Signs Vital signs: Vital Signs - 8 hr 10/25/19 18:49 10/25/19 20:18 Temperature 97.9 F Pulse Rate 78 Pulse Rate [Left] 84 Respiratory Rate 16 16 Blood Pressure [Left Arm] 137/70 134/74 Pulse Oximetry 100 98 MDM - Abdominal Pain Lab Data Attestation: I reviewed the patient's lab results. Point of care testing: Point of Care Testing Test Results Negative Urine Dip Bedside Urine Glucose Negative Bedside Urine Bilirubin - Negative Bedside Urine Ketone - Negative Urine Specific [place] 1.030 Bedside Urine Occult Blood - Negative Bedside Urine pH 6.0 Bedside Urine Protein - Negative Bedside Urine Urobilinogen - Negative Bedside Urine Nitrite - Negative Bedside Urine Leukocytes - Negative Esterase MDM Narrative Medical decision making narrative: Discussed with patient she states that she has had these symptoms they are very short, we had reviewed her urine which was negative for no signs of hematuria or infection. Her symptoms do not seem consistent with any emergent process she does have a significant history with An syndrome and a colectomy and reanastomosis. She has not had any obstructive symptoms. She has not had any other clear infectious symptoms, her pain resolved so quickly that kidney stones seem less likely, we discussed potential differential and patient defers any additional testing and would like to return home at this time. She states her main was concern was because she had contacted the [facility] as they are trying to get and they told her she needed to be seen. We did discuss return precautions and signs and symptoms to watch for. Discharge Plan Departure Patient Disposition: Home Clinical Impression: Abdominal pain Qualifiers: Abdominal location: generalized Qualified Code(s): R10.84 - Generalized abdominal pain Discharge Date/Time: 10/25/19 20:27 Instructions: DI for Abdominal Pain-Adult Activity Restrictions/Additional Instructions: Follow up with your primary care physician for recheck in the next week. You may take ibuprofen and/or tylenol as needed for pain. Return to ER for fevers greater 100.4 F, worsening abdominal pain, persistent vomiting, black or bloody stools, inability have a bowel movement, new back or flank pain, inability urinate or other new or concerning symptoms. Prescriptions: No Action tramadol [Ultram] 50 mg tablet 50 mg PO Q6H PRN (Reason: pain) Qty: 7 RF: 0 albuterol sulfate [Ventolin HFA] 90 mcg/actuation HFA aerosol inhaler 1 puff INHALATION DIRECTED RF: 0 cetirizine [Zyrtec] 10 mg Tablet 10 mg PO DAILY RF: 0 ondansetron 4 mg tablet,disintegrating 4 mg PO Q6H PRN (Reason: nausea and vomiting) Qty: 7 RF: 0 Referrals: Pratima Meyers ARNP [Primary Care Provider] -
[2019-10-25 20:18] VITALS: BP 134/74; PULSE 78; RESP 16; O2SAT 98
== END 2019-10-25 20:27 | disposition home or self-care (01) ==
PROVIDERS: Emergency Provider Emergency Medicine; Family Provider Nurse Practitioner Gerontology; PCP Nurse Practitioner Gerontology
DX: R10.84 Generalized abdominal pain (principal)
CPT/HCPCS: 81003; 81025; 99282

== ENCOUNTER 2019-11-17 17:37 | Emergency (ER) | payer OTHER, MEDICAID, SELFPAY ==
[2019-11-17 17:45] VITALS: BP 121/78; PULSE 87; RESP 18; TEMP 36.9; O2SAT 99
[2019-11-17 18:21] LABS: Bacteria Urine Occasional (0-1); Culture Indicated Urine Specimen Cultured; RBC Urine 0-1/HPF (0-5/HPF); Squamous Epithelial Cell Urine 1-5 /HPF (0-5/HPF); WBC Urine 1-5/HPF (0-5/HPF)
[2019-11-17 20:31] LABS: Add Manual Diff / Slide Review NO; Basophils Absolute Auto 100 /uL (0-100); Basophils Percent Auto 0.5 % (0-2); Eosinophils Absolute Auto 100 /uL (0-450); Hematocrit 31.8 % (36-46); Hemoglobin 10.3 g/dL (12.0-16.0); Lymphocytes Absolute Auto 3000 /uL (1100-4500); Lymphocytes Percent Auto 26.3 % (25-40); Mean Corpuscular HGB Conc 32.4 % (30-36); Mean Corpuscular Hemoglobin 26.7 PG (26-34); Mean Corpuscular Volume 82.4 fL (80-100); Monocytes Absolute Auto 700 /uL (0-900); Monocytes Percent Auto 6.4 % (3-14); Neutrophils Absolute Auto 7500 /uL (1500-7000); Neutrophils Percent Auto 65.8 % (50-75); Platelet Count 334 X10^3/uL (150-400); Red Blood Cell Count 3.86 X10^6/uL (4.0-5.2); Red Cell Distribution Width 14.6 % (11.6-14.8); White Blood Cell Count 11.3 X10^3/uL (4.5-11.0)
[2019-11-17 20:34] LABS: Prothrombin Time 11.8 SECONDS (10.1-12.7)
[2019-11-17 20:37] LABS: PTT Partial Thromboplastin Tim 32 SECONDS (26.4-36.2)
[2019-11-17 20:38] LABS: Alanine Aminotransferase 24 IU/L (<35); Albumin Globulin Ratio 1.2 (1.0-2.8); Alkaline Phosphatase 84 U/L (38-126); Aspartate Aminotransferase 25 IU/L (14-36); BUN Creatinine Ratio 17.8 (6-22); Bilirubin Total 0.3 mg/dL (0.2-1.3); Blood Urea Nitrogen 13 mg/dL (7-17); Calcium 9.3 mg/dL (8.4-10.2); Carbon Dioxide 26 mmol/L (22-32); Chloride 106 mmol/L (98-107); Estimated Glomerular Filt Rate > 60.0 mL/min (>60); Globulin 3.4 g/dL (1.7-4.1); Glucose 91 mg/dL (70-100); HEMOLYSIS < 15 (0-50); Lipase 69 U/L (23-300); Potassium 4.1 mmol/L (3.4-5.1); Sodium 138 mmol/L (137-145); Total Protein 7.4 g/dL (6.3-8.2)
--- NOTE | 2019-11-17 21:04 | ED.ABDPAIN ---
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 She notes that she has been eating same amount of foods, no vomiting, no nausea, she has had the same amount of stool output and is still passing flatus. No fevers, no dysuria. Related Data Home Medications Medication Instructions Recorded Confirmed cetirizine [Zyrtec] 10 mg PO DAILY 05/05/19 08/01/19 albuterol sulfate [Ventolin HFA] 1 puff INHALATION DIRECTED 08/01/19 08/01/19 Previous Rx's Medication Instructions Recorded ondansetron 4 mg PO Q6H PRN #7 tab 05/06/19 tramadol [Ultram] 50 mg PO Q6H PRN #7 tab 06/21/19 dicyclomine 10 mg PO TID PRN #30 cap 11/17/19 Allergies Allergy/AdvReac Type Severity Reaction Status Date / Time No Known Drug Allergies Allergy Verified 08/01/19 09:08 Review of Systems Review of Systems Narrative: All systems reviewed and are unremarkable except as noted in HPI and below Patient History Social History Smoking Status: Never smoker Smoking Status: Never smoker alcohol intake frequency: holidays/special occasions only Substance Use Type: does not use Exam Narrative Exam Narrative: General: Healthy appearing, in no acute distress. Able to give a complete and coherent history. Well-nourished well-developed HEENT: Moist mucous membranes, normal sclera with reactive pupils, Neck: No JVD, supple Respiratory: Lungs are clear to auscultation, no wheezing no rales no rhonchi. Full and symmetrical air movement Cardiac: Regular rate and rhythm no murmurs no bruits Abdomen: Soft, mild tenderness along the left side without any specific localizing findings. Good bowel tones, no flank pain Skin: Warm and dry, no rashes Neurologic: Grossly neurologically intact with no obvious asymmetries or abnormalities Extremities: No trauma, well perfused Psych: Cooperative, appropriate insight and affect Initial Vital Signs Initial Vital Signs: Vital Signs Temperature 98.4 F 11/17/19 17:45 Pulse Rate 87 11/17/19 17:45 Respiratory Rate 18 11/17/19 17:45 Blood Pressure 121/78 11/17/19 17:45 Pulse Oximetry 99 11/17/19 17:45 Course Orders Ordered: ED Orders 11/17/19 17:55 Urine Culture Stat Urine Microscopic Stat 11/17/19 20:20 Complete Blood Count AUTO DIFF Stat Comprehensive Metabolic Panel Stat Lipase Stat Partial Thromboplastin Time Stat Prothrombin Time INR Stat Vital Signs Vital signs: Vital Signs - 8 hr 11/17/19 17:45 Temperature 98.4 F Pulse Rate 87 Respiratory Rate 18 Blood Pressure 121/78 Pulse Oximetry 99 MDM - Abdominal Pain Medical Records Attestation: I reviewed the patient's medical records. Lab Data Attestation: I reviewed the patient's lab results. Result diagrams: 11/17/19 20:20 11/17/19 20:20 Labs: Lab Results 11/17/19 11/17/19 11/17/19 Range/Units 17:55 20:20 20:20 WBC 11.3 H (4.5-11.0) X10^3/uL RBC 3.86 L (4.0-5.2) X10^6/uL Hgb 10.3 L (12.0-16.0) g/dL Hct 31.8 L (36-46) % MCV 82.4 (80-100) fL MCH 26.7 (26-34) PG MCHC 32.4 (30-36) % RDW 14.6 (11.6-14.8) % Plt Count 334 (150-400) X10^3/uL Neut % (Auto) 65.8 (50-75) % Lymph % (Auto) 26.3 (25-40) % [place] % (Auto) 6.4 (3-14) % Eos % (Auto) 1.0 L (2-4) % Baso % (Auto) 0.5 (0-2) % Neut # (Auto) 7500 H (3803-4844) /uL Lymph # (Auto) 3000 (2871-1867) /uL [place] # (Auto) 700 (0-900) /uL Eos # (Auto) 100 (0-450) /uL Baso # (Auto) 100 (0-100) /uL PT 11.8 (10.1-12.7) SECONDS INR 1.0 (0.9-1.3) APTT 32 (26.4-36.2) SECONDS Sodium (137-145) mmol/L Potassium (3.4-5.1) mmol/L Chloride (98-107) mmol/L Carbon Dioxide (22-32) mmol/L BUN (7-17) mg/dL Creatinine (0.52-1.04) mg/dL Estimated GFR (>60) mL/min BUN/Creatinine Ratio (6-22) Glucose (70-100) mg/dL Calcium (8.4-10.2) mg/dL Total Bilirubin (0.2-1.3) mg/dL AST (14-36) IU/L ALT (<35) IU/L Alkaline Phosphatase (38-126) U/L Total Protein (6.3-8.2) g/dL Albumin (3.5-5.0) g/dL Globulin (1.7-4.1) g/dL Albumin/Globulin Ratio (1.0-2.8) Lipase (23-300) U/L Urine RBC 0-1/hpf (0-5/HPF) Urine WBC 1-5/hpf (0-5/HPF) Ur Squamous Epith Cells 1-5 /hpf (0-5/HPF) Urine Bacteria Occasional (0-1) (None) Ur Culture Indicated? Specimen cultured 11/17/19 Range/Units 20:20 WBC (4.5-11.0) X10^3/uL RBC (4.0-5.2) X10^6/uL Hgb (12.0-16.0) g/dL Hct (36-46) % MCV (80-100) fL MCH (26-34) PG MCHC (30-36) % RDW (11.6-14.8) % Plt Count (150-400) X10^3/uL Neut % (Auto) (50-75) % Lymph % (Auto) (25-40) % [place] % (Auto) (3-14) % Eos % (Auto) (2-4) % Baso % (Auto) (0-2) % Neut # (Auto) (7373-0935) /uL Lymph # (Auto) (2985-1008) /uL [place] # (Auto) (0-900) /uL Eos # (Auto) (0-450) /uL Baso # (Auto) (0-100) /uL PT (10.1-12.7) SECONDS INR (0.9-1.3) APTT (26.4-36.2) SECONDS Sodium 138 (137-145) mmol/L Potassium 4.1 (3.4-5.1) mmol/L Chloride 106 (98-107) mmol/L Carbon Dioxide 26 (22-32) mmol/L BUN 13 (7-17) mg/dL Creatinine 0.73 (0.52-1.04) mg/dL Estimated GFR > 60.0 (>60) mL/min BUN/Creatinine Ratio 17.8 (6-22) Glucose 91 (70-100) mg/dL Calcium 9.3 (8.4-10.2) mg/dL Total Bilirubin 0.3 (0.2-1.3) mg/dL AST 25 (14-36) IU/L ALT 24 (<35) IU/L Alkaline Phosphatase 84 (38-126) U/L Total Protein 7.4 (6.3-8.2) g/dL Albumin 4.0 (3.5-5.0) g/dL Globulin 3.4 (1.7-4.1) g/dL Albumin/Globulin Ratio 1.2 (1.0-2.8) Lipase 69 (23-300) U/L Urine RBC (0-5/HPF) Urine WBC (0-5/HPF) Ur Squamous Epith Cells (0-5/HPF) Urine Bacteria (None) Ur Culture Indicated? Point of care testing: Point of Care Testing Test Results Negative Urine Dip Bedside Urine Glucose Negative Bedside Urine Bilirubin - Negative Bedside Urine Ketone +/- 5 Urine Specific [place] 1.030 Bedside Urine Occult Blood - Negative Bedside Urine pH 5 Bedside Urine Protein - Negative Bedside Urine Urobilinogen - Negative Bedside Urine Nitrite - Negative Bedside Urine Leukocytes + 70 Esterase MDM Narrative Medical decision making narrative: Crampy left-sided abdominal pain in the setting of a complete colectomy. No significant change to bowel movements. She did find that some Gas-X was slightly helpful today. Labs do not suggest severe infection and clinical exam does not suggest obstruction. Discussed options at this point. Given her history of An's disease and multiple GI procedures the chance that she is going to end up with multiple abdominal CTs over the course of her lifetime is high. Given that we opted to not proceed with any a additional imaging at this time. Should she have worsening symptoms that would obviously be the next step. She is comfortable with that approach. Recommended that she not use any specific pain medication, if narcotic relief is needed so is CT scan. We briefly discussed using Bentyl to see if a smooth muscle relaxant might be helpful with the cramping and she was willing to give that a try. Prescription will be sent home. Should she have worsening symptoms or develops fevers she will need to return for additional evaluation. Questions are answered. She is safe for home discharge Discharge Plan Departure Patient Disposition: Home Clinical Impression: Abdominal pain Qualifiers: Abdominal location: unspecified location Qualified Code(s): R10.9 - Unspecified abdominal pain Instructions: DI for Abdominal Pain-Adult Activity Restrictions/Additional Instructions: Thank you for coming in. Your labs were reassuring today. As you do not have a colon, Some of the typical things we worry about with abdominal pain like appendicitis or diverticulitis are not going to be an option for you. Your lab work does not suggest an acute infection, there is no evidence of a bladder infection and your clinical exam does not suggest an acute bowel obstruction or other surgical explanation to explain the pain you been having over the last few days. I am going to give you a prescription for Bentyl, this can sometimes help with gas. A prescription for this has been electronically transmitted to [facility] in [place]. If it is not helpful please do not continue. We specifically discussed not giving you any additional pain medication, if her pain is significant that you need more pain relief then you should return and we should proceed to a CT scan of your abdomen. If you are getting worse I would expect to see you back. Hopefully this will resolve in the next couple of days all by itself. I wish you the best Prescriptions: New dicyclomine 10 mg capsule 10 mg PO TID PRN (Reason: abdominal discomfort) Qty: 30 RF: 0 No Action tramadol [Ultram] 50 mg tablet 50 mg PO Q6H PRN (Reason: pain) Qty: 7 RF: 0 albuterol sulfate [Ventolin HFA] 90 mcg/actuation HFA aerosol inhaler 1 puff INHALATION DIRECTED RF: 0 cetirizine [Zyrtec] 10 mg Tablet 10 mg PO DAILY RF: 0 ondansetron 4 mg tablet,disintegrating 4 mg PO Q6H PRN (Reason: nausea and vomiting) Qty: 7 RF: 0 Referrals: Pratima Meyers ARNP [Primary Care Provider] -
[2019-11-17 21:45] VITALS: BP 119/67; PULSE 85; RESP 16; O2SAT 100
== END 2019-11-17 21:52 | disposition home or self-care (01) ==
PROVIDERS: Emergency Medicine; Emergency Provider Emergency Medicine; Family Provider Nurse Practitioner Gerontology; PCP Nurse Practitioner Gerontology
DX: R10.9 Unspecified abdominal pain (principal)
CPT/HCPCS: 36415; 80053; 81003; 81015; 81025; 83690; 85025; 85610; 85730; 87086; 99283; 99284

== ENCOUNTER 2020-02-23 19:26 | Emergency (ER) | payer OTHER, MEDICAID, SELFPAY ==
[2020-02-23 19:51] VITALS: BP 135/85; PULSE 101; RESP 17; TEMP 37.2; O2SAT 97
--- NOTE | 2020-02-23 20:15 | ED.EXTPRO ---
HPI - Extremity Problem <JUANJO Pelletier - Last Filed: 02/23/20 20:57> General Chief complaint: Extremity Problem,Nontraumatic Stated complaint: Rt Foot Pain, States Bad Ingrown Toenail Time Seen by Provider: 02/23/20 19:45 Source: patient Mode of arrival: Ambulatory Limitations: no limitations History of Present Illness HPI Narrative: The patient is a 24-year-old female nonsmoker presents with a chief complaint of a right-sided ingrown toenail. She states has been going on approximately 1 week ago. She states on the medial aspect of her right great toe she has a history of ingrown toenails. Related Data Home Medications Medication Instructions Recorded Confirmed cetirizine [Zyrtec] 10 mg PO DAILY 05/05/19 08/01/19 albuterol sulfate [Ventolin HFA] 1 puff INHALATION DIRECTED 08/01/19 08/01/19 Previous Rx's Medication Instructions Recorded ondansetron 4 mg PO Q6H PRN #7 tab 05/06/19 tramadol [Ultram] 50 mg PO Q6H PRN #7 tab 06/21/19 dicyclomine 10 mg PO TID PRN #30 cap 11/17/19 Allergies Allergy/AdvReac Type Severity Reaction Status Date / Time No Known Drug Allergies Allergy Verified 08/01/19 09:08 Review of Systems <JUANJO Pelletier - Last Filed: 02/23/20 20:57> Review of Systems Narrative: GENERAL: Denies chills, fatigue, malaise, fever, sweats. HEENT: Denies sinus pain, ear pain, sore throat, difficulty swallowing, dizziness. RESPIRATORY: Denies dyspnea, cough, wheezing, hemoptysis, sputum. CARDIOVASCULAR: Denies chest pain, palpitations, orthopnea, edema, GASTROINTESTINAL: Denies nausea, vomiting, abdominal pain, diarrhea, constipation, melena. : Denies dysuria, frequency, incontinence, hematuria, urinary retention. MUSCULOSKELETAL: denies weakness, joint pain, or bony pain SKIN: See HPI NEUROLOGIC: Denies weakness, headache, numbness, change in speech, confusion, seizures, incoordination. PSYCHIATRIC: No concerning psychosocial issues. 12 point review of systems is negative except for those stated above Patient History <JUANJO Pelletier - Last Filed: 02/23/20 20:57> Medical History Healthy adult (Acute) Ovarian cyst (Inactive) Surgical History History of abdominal surgery (Acute) No pertinent past surgical history (Acute) Social History Smoking Status: Never smoker Smoking Status: Never smoker alcohol intake frequency: a few times a month Substance Use Type: marijuana Exam <JUANJO Pelletier - Last Filed: 02/23/20 20:57> Narrative Exam Narrative: GENERAL: This is a well-nourished, well-developed patient, no acute distress HEAD: Atraumatic. Normocephalic. No temporal or scalp tenderness. EYES: Pupils equal round and reactive. Extraocular motions intact. No scleral icterus. No injection or drainage. ENT: Nose without bleeding, purulent drainage or septal hematoma. Throat without erythema, tonsillar hypertrophy or exudate. Uvula midline. Airway patent. NECK: Trachea midline. No JVD or lymphadenopathy. Supple, nontender, no meningeal signs. CARDIOVASCULAR: Regular rate and rhythm RESPIRATORY: No cough. No increased respiratory effort. No accessory muscle use. EXTREMITIES: Full range of motion noted right foot. Full range of motion noted right toes. Capillary refill less than 2 seconds. Positive right pedal pulses. BACK: Nontender without deformity or crepitance. No flank tenderness. NEURO: AOx3. SKIN: Ingrown toenail noted on medial aspect of right great toe slight erythema localized. No extending erythema. Initial Vital Signs Initial Vital Signs: Vital Signs Temperature 98.9 F 02/23/20 19:51 Pulse Rate 101 H 02/23/20 19:51 Respiratory Rate 17 02/23/20 19:51 Blood Pressure 135/85 02/23/20 19:51 Pulse Oximetry 97 02/23/20 19:51 <Pa Osborne DO - Last Filed: 02/24/20 06:29> Initial Vital Signs Initial Vital Signs: Vital Signs Temperature 98.9 F 02/23/20 19:51 Pulse Rate 101 H 02/23/20 19:51 Respiratory Rate 17 02/23/20 19:51 Blood Pressure 135/85 02/23/20 19:51 Pulse Oximetry 97 02/23/20 19:51 Procedures <BRINA Pelletier - Last Filed: 02/23/20 20:57> Nerve Block Nerve Block 1: Local Anesthetic: lidocaine 1% and with bicarb Amount of anesthesia used (mL): 6 Side: right Nerve Blocks: digital (Right great toe) Procedure Successful: Yes Patient Tolerated Procedure: Well Complications: none [facility] [place] Procedure Name of Procedure: Toenail removal Side (if applicable): right Location: Great toe Technique/Description of procedure performed: To was copiously cleaned with Hibiclens, nail was from nail bed and medial aspect of right great toenail was removed. Patient tolerated procedure well. Digital block was performed as documented. The wound was dressed by nursing with bacitracin Patient tolerated procedure: Well Complications: none Scores <BRINA Pelletier - Last Filed: 02/23/20 20:57> GCS Diaz coma scale eye opening: Spontaneous Stebbins coma scale verbal response: Orientated Diaz coma scale motor response: Obey commands Stebbins coma scale total score: 15 Course <BRINA Pelletier - Last Filed: 02/23/20 20:57> Orders Ordered: Discontinued Medications Bacitracin (Bacitracin) 1 applic TOP NOW ONE Stop: 02/23/20 20:55 Lidocaine/Sodium Bicarbonate (Buffered Lidocaine 10 Ml Syr) 10 ml INJ NOW ONE Stop: 02/23/20 19:53 Last Admin: 02/23/20 20:19 Dose: 10 ml Documented by: REHANA Vital Signs Vital signs: Vital Signs - 8 hr 02/23/20 19:51 Temperature 98.9 F Pulse Rate 101 H Respiratory Rate 17 Blood Pressure 135/85 Pulse Oximetry 97 <Pa Osborne DO - Last Filed: 02/24/20 06:29> Orders Ordered: Discontinued Medications Bacitracin (Bacitracin) 1 applic TOP NOW ONE Stop: 02/23/20 20:55 Lidocaine/Sodium Bicarbonate (Buffered Lidocaine 10 Ml Syr) 10 ml INJ NOW ONE Stop: 02/23/20 19:53 Last Admin: 02/23/20 20:19 Dose: 10 ml Documented by: REHANA Vital Signs Vital signs: Vital Signs - 8 hr 02/23/20 19:51 Temperature 98.9 F Pulse Rate 101 H Respiratory Rate 17 Blood Pressure 135/85 Pulse Oximetry 97 [facility] - Extremity (Nontraumatic) <EL Pelletier-BC - Last Filed: 02/23/20 20:57> [facility] Narrative Medical decision making narrative: The patient is a 24 year female who presents with a chief complaint of an ingrown toenail. Her toenail was removed as per procedural note. I discussed at length not submerging her foot to dirty water, monitoring for signs and symptoms of infection, follow-up with primary care provider and encouraged her to follow up with back end architect as she has history of multiple ingrown toenails. Patient has no questions or concerns upon discharge and states understanding return precautions as well as follow-up care. Discharge Plan Departure Patient Disposition: Home Clinical Impression: Ingrowing toenail of right foot Discharge Date/Time: 02/23/20 21:11 Instructions: DI for Ingrown Toenail Removal, DI for Ingrown Toenail Activity Restrictions/Additional Instructions: Thank you for trusting us with your care today. We removed the ingrown part of her toenail. Please monitor for signs and symptoms of infection. I recommend elevation over the next day or so. He can apply topical antibiotic cream. Please follow-up with primary care provider Given that you have had multiple ingrown toenails, you may benefit from seeing a back end architect. Please come back to emergency department for any acute concerns. Prescriptions: No Action tramadol [Ultram] 50 mg tablet 50 mg PO Q6H PRN (Reason: pain) Qty: 7 RF: 0 albuterol sulfate [Ventolin HFA] 90 mcg/actuation HFA aerosol inhaler 1 puff INHALATION DIRECTED RF: 0 cetirizine [Zyrtec] 10 mg Tablet 10 mg PO DAILY RF: 0 ondansetron 4 mg tablet,disintegrating 4 mg PO Q6H PRN (Reason: nausea and vomiting) Qty: 7 RF: 0 dicyclomine 10 mg capsule 10 mg PO TID PRN (Reason: abdominal discomfort) Qty: 30 RF: 0 Referrals: [facility] [Provider Group] Sapna Kovacs ARNP [Primary Care Provider] - <Pa Osborne DO - Last Filed: 02/24/20 06:29> Cosign ED Attending Cosariesature Attestation: I was immediately available in the department for consultation. This documentation has been reviewed and I agree with assessment and plan. Supervised by Pa Osborne DO
[2020-02-23] MEDS: LIDO 1%/SOD BICARB 8.4% (10ML) 10 ML SYRINGE INJ (20:19)
[2020-02-23 21:09] VITALS: BP 140/85; PULSE 95; RESP 14; O2SAT 99
== END 2020-02-23 21:11 | disposition home or self-care (01) ==
PROVIDERS: Emergency Provider Nurse Practitioner Family; Family Provider Nurse Practitioner Gerontology; PCP Nurse Practitioner Family
DX: L60.0 Ingrowing nail (principal)
CPT/HCPCS: 11750; 64450; 99281; 99283

== ENCOUNTER 2020-08-13 16:43 | Emergency (ER) | payer OTHER, MEDICAID, SELFPAY ==
[2020-08-13 16:47] VITALS: BP 125/71; PULSE 69; RESP 16; TEMP 36.7; O2SAT 100; BMI 41.1
[2020-08-13 17:33] LABS: Bacteria Urine None Seen; RBC Urine None Seen (0-5/HPF)
[2020-08-13 17:43] LABS: Culture Indicated Urine Cult Not Indicated; Mucus Urine 2+ (Negative); Squamous Epithelial Cell Urine 5-10 /HPF (0-5/HPF); WBC Urine 5-10/HPF (0-5/HPF)
[2020-08-13 18:08] VITALS: BP 140/63; PULSE 67; O2SAT 100
--- NOTE | 2020-08-13 18:18 | ED.ABDPAIN ---
HPI - Abdominal Pain General Chief Complaint: Abdominal Pain Stated Complaint: HIGH WHITE BLOOD COUNT Time Seen by Provider: 08/13/20 18:00 Source: patient and family Mode of arrival: Ambulatory Limitations: no limitations History of Present Illness HPI narrative: 25F non-smoker with a history of An's Syndrome and subsequent total colectomy presents with a chief complaint of elevated white blood cells. She has had off and on episodes of left flank pain for the past week or to in went to an outside walk-in clinic yesterday and had labs drawn. She has had no fever chills. She denies runny nose, sore throat or cough. She has had no nausea, vomiting or diarrhea. She denies known exposure to COVID-19. She was sent here for further evaluation given the complexity of her medical history. She states that the pain is episodic in nature and very brief and sharp when present. She is not currently having much in the way of pain. MD complaint: abdominal pain Onset (ago): day(s) Pain Consistency: intermittent and now resolved Location: LLQ Severity: moderate Quality: stabbing Radiation: L flank Relieving factors: nothing Exacerbating factors: nothing Associated symptoms: denies other symptoms Related Data Home Medications Medication Instructions Recorded Confirmed cetirizine [Zyrtec] 10 mg PO DAILY 05/05/19 08/01/19 albuterol sulfate [Ventolin HFA] 1 puff INHALATION DIRECTED 08/01/19 08/01/19 Previous Rx's Medication Instructions Recorded ondansetron 4 mg PO Q6H PRN #7 tab 05/06/19 tramadol [Ultram] 50 mg PO Q6H PRN #7 tab 06/21/19 dicyclomine 10 mg PO TID PRN #30 cap 11/17/19 Allergies Allergy/AdvReac Type Severity Reaction Status Date / Time No Known Drug Allergies Allergy Verified 08/01/19 09:08 Review of Systems Constitutional Constitutional: Denies chills, Denies fatigue, Denies fever(s), Denies frequent falls, Denies lethargy and Denies weakness Eyes Eyes: Denies change in vision, Denies eye discharge, Denies irritation and Denies loss of vision ENT Ears, Nose, Mouth, and Throat: Denies change in voice, Denies dizziness, Denies neck pain, Denies sore throat and Denies throat swelling Cardiovascular Cardiovascular: Denies chest pain, Denies irregular heart rhythm, Denies lightheadedness, Denies palpitations, Denies dyspnea, Denies dyspnea on exertion and Denies orthopnea Respiratory Respiratory: Denies cough, Denies dyspnea, Denies dyspnea on exertion and Denies wheezing Gastrointestinal Gastrointestinal: Reports abdominal pain, Denies change in bowel habits, Denies diarrhea, Denies nausea and Denies vomiting Musculoskeletal Musculoskeletal: Denies neck pain and Denies numbness Integumentary/Breasts Skin/Breast: Denies pruritus, Denies erythema, Denies rash and Denies wounds Neurologic Neurologic: Denies behavioral changes, Denies confusion, Denies dizziness, Denies frequent falls, Denies loss of vision, Denies numbness and Denies weakness Psychiatric Psychiatric: Denies anxiety, Denies behavioral changes, Denies confusion, Denies depression, Denies homicidal ideation and Denies suicidal ideation Endocrine Endocrine: Denies fatigue, Denies flushing and Denies palpitations Hematologic/Lymphatic Hematologic/Lymphatic: Denies easy bruising Allergic/Immunologic Allergic/Immunologic: Denies urticaria, Denies throat swelling and Denies wheezing Patient History Medical History (Updated 03/09/20 @ 00:00 by ) Healthy adult Ovarian cyst Surgical History History of abdominal surgery No pertinent past surgical history Social History Smoking Status: Never smoker Smoking Status: Never smoker alcohol intake frequency: a few times a month Substance Use Type: marijuana Exam Narrative Exam Narrative: GENERAL: [25] year old patient appears stated age. Well-nourished, well-developed patient, in mild distress. HEAD: Atraumatic. Normocephalic. EYES: Pupils equal round and reactive. Extraocular motions intact. No scleral icterus. No injection or drainage. ENT: Nose without bleeding, purulent drainage. Throat without erythema, tonsillar hypertrophy or exudate. Airway patent. NECK: Trachea midline. Non tender CARDIOVASCULAR: Regular rate and rhythm without murmurs, gallops, or rubs. RESPIRATORY: Clear to auscultation. Breath sounds equal bilaterally. No wheezes, rales, or rhonchi. GASTROINTESTINAL: Abdomen soft, non-tender, nondistended. EXTREMITIES: No edema or joint tenderness. BACK: Nontender without deformity or crepitance. No flank tenderness. NEURO: AOx3. SKIN: No rash or erythema of visible areas Initial Vital Signs Initial Vital Signs: Vital Signs Temperature 98.1 F 08/13/20 16:47 Pulse Rate 69 08/13/20 16:47 Respiratory Rate 16 08/13/20 16:47 Blood Pressure 125/71 08/13/20 16:47 Pulse Oximetry 100 08/13/20 16:47 Course Orders Ordered: ED Orders 08/13/20 16:52 Complete Blood Count AUTO DIFF Stat Comprehensive Metabolic Panel Stat Lipase Stat Partial Thromboplastin Time Stat Prothrombin Time INR Stat EKG-12 Lead Stat 08/13/20 16:55 Urine Microscopic Stat Vital Signs Vital signs: Vital Signs - 8 hr 08/13/20 16:47 08/13/20 18:08 Temperature 98.1 F Pulse Rate 69 67 Respiratory Rate 16 Blood Pressure 125/71 140/63 Pulse Oximetry 100 100 MDM - Abdominal Pain Lab Data Labs: Lab Results 08/13/20 Range/Units 16:55 Urine RBC None seen (0-5/HPF) Urine WBC 5-10/hpf H (0-5/HPF) Ur Squamous Epith Cells 5-10 /hpf H (0-5/HPF) Urine Bacteria None seen (None) Urine Mucus 2+ H (Negative) Ur Culture Indicated? Cult not indicated Point of care testing: Point of Care Testing Test Results Negative Urine Dip Bedside Urine Glucose Negative Bedside Urine Bilirubin - Negative Bedside Urine Ketone - Negative Urine Specific [place] 1.030 Bedside Urine Occult Blood - Negative Bedside Urine pH 6.0 Bedside Urine Protein + 30 Bedside Urine Urobilinogen - Negative Bedside Urine Nitrite - Negative Bedside Urine Leukocytes - Negative Esterase Discharge Plan Departure Prescriptions: No Action tramadol [Ultram] 50 mg tablet 50 mg PO Q6H PRN (Reason: pain) Qty: 7 RF: 0 albuterol sulfate [Ventolin HFA] 90 mcg/actuation HFA aerosol inhaler 1 puff INHALATION DIRECTED RF: 0 cetirizine [Zyrtec] 10 mg Tablet 10 mg PO DAILY RF: 0 ondansetron 4 mg tablet,disintegrating 4 mg PO Q6H PRN (Reason: nausea and vomiting) Qty: 7 RF: 0 dicyclomine 10 mg capsule 10 mg PO TID PRN (Reason: abdominal discomfort) Qty: 30 RF: 0
[2020-08-13 18:30] VITALS: PULSE 58; O2SAT 99
[2020-08-13 19:00] VITALS: PULSE 63; O2SAT 99
[2020-08-13 19:18] LABS: Add Manual Diff / Slide Review NO; Basophils Absolute Auto 100 /uL (0-100); Basophils Percent Auto 0.8 % (0-2); Eosinophils Absolute Auto 200 /uL (0-450); Eosinophils Percent Auto 2.4 % (2-4); Hematocrit 41.1 % (36-46); Hemoglobin 13.4 g/dL (12.0-16.0); Lymphocytes Absolute Auto 3000 /uL (1100-4500); Lymphocytes Percent Auto 29.7 % (25-40); Mean Corpuscular HGB Conc 32.5 % (30-36); Mean Corpuscular Hemoglobin 26.9 PG (26-34); Mean Corpuscular Volume 82.8 fL (80-100); Monocytes Absolute Auto 600 /uL (0-900); Monocytes Percent Auto 6.1 % (3-14); Neutrophils Absolute Auto 6100 /uL (1500-7000); Platelet Count 309 X10^3/uL (150-400); Red Blood Cell Count 4.96 X10^6/uL (4.0-5.2); Red Cell Distribution Width 16.5 % (11.6-14.8)
--- NOTE | 2020-08-13 19:21 | ED.ABDPAIN ---
HPI - Abdominal Pain General Chief Complaint: Abdominal Pain Stated Complaint: HIGH WHITE BLOOD COUNT Time Seen by Provider: 08/13/20 18:00 Source: patient and family Mode of arrival: Ambulatory Limitations: no limitations History of Present Illness HPI narrative: 25-year-old female nonsmoker with history of An syndrome and prior colectomy presents with her significant other and a chief complaint of an abnormal lab finding. She had some brief left-sided flank discomfort yesterday and was seen and evaluated at an outpatient walking clinic. Her labs demonstrated an elevated white blood cell, and given her medical history she was sent to the emergency department for further evaluation. She denies runny nose, sore throat or cough. She has had no fever or chills. She denies any chest pain or shortness of breath. She denies any ongoing abdominal pain nor nausea, vomiting or diarrhea. She may have had some urinary complaints but is not actively having dysuria, frequency or urgency. MD complaint: abdominal pain Onset (ago): hour(s) Pain Consistency: now resolved Location: LLQ Severity: moderate Quality: stabbing Relieving factors: nothing Exacerbating factors: nothing Associated symptoms: denies other symptoms Related Data Home Medications Medication Instructions Recorded Confirmed cetirizine [Zyrtec] 10 mg PO DAILY 05/05/19 08/01/19 albuterol sulfate [Ventolin HFA] 1 puff INHALATION DIRECTED 08/01/19 08/01/19 Previous Rx's Medication Instructions Recorded ondansetron 4 mg PO Q6H PRN #7 tab 05/06/19 tramadol [Ultram] 50 mg PO Q6H PRN #7 tab 06/21/19 dicyclomine 10 mg PO TID PRN #30 cap 11/17/19 sulfamethoxazole-trimethoprim 1 tab PO BID 7 Days #14 tab 08/13/20 [Bactrim DS] Allergies Allergy/AdvReac Type Severity Reaction Status Date / Time No Known Drug Allergies Allergy Verified 08/01/19 09:08 Review of Systems Constitutional Constitutional: Denies fatigue, Denies frequent falls and Denies weakness Eyes Eyes: Denies loss of vision ENT Ears, Nose, Mouth, and Throat: Denies dizziness and Denies throat swelling Cardiovascular Cardiovascular: Denies chest pain, Denies irregular heart rhythm, Denies lightheadedness, Denies palpitations, Denies dyspnea, Denies dyspnea on exertion and Denies orthopnea Respiratory Respiratory: Denies cough, Denies dyspnea, Denies dyspnea on exertion and Denies wheezing Gastrointestinal Gastrointestinal: Denies abdominal pain, Denies change in bowel habits, Denies diarrhea, Denies nausea and Denies vomiting Musculoskeletal Musculoskeletal: Denies numbness Integumentary/Breasts Skin/Breast: Denies pruritus, Denies erythema, Denies rash and Denies wounds Neurologic Neurologic: Denies behavioral changes, Denies confusion, Denies dizziness, Denies frequent falls, Denies loss of vision, Denies numbness and Denies weakness Psychiatric Psychiatric: Denies behavioral changes and Denies confusion Endocrine Endocrine: Denies fatigue, Denies flushing and Denies palpitations Hematologic/Lymphatic Hematologic/Lymphatic: Denies easy bruising Allergic/Immunologic Allergic/Immunologic: Denies urticaria, Denies throat swelling and Denies wheezing Patient History Medical History (Updated 08/13/20 @ 19:33 by Pa Osborne DO) Healthy adult Ovarian cyst Surgical History History of abdominal surgery No pertinent past surgical history Social History Smoking Status: Never smoker Smoking Status: Never smoker alcohol intake frequency: a few times a month Substance Use Type: marijuana Exam Narrative Exam Narrative: GENERAL: [25] year old patient appears stated age. Well-nourished, well-developed patient, in mild distress. HEAD: Atraumatic. Normocephalic. EYES: Pupils equal round and reactive. Extraocular motions intact. No scleral icterus. No injection or drainage. ENT: Nose without bleeding, purulent drainage. Throat without erythema, tonsillar hypertrophy or exudate. Airway patent. NECK: Trachea midline. Non tender CARDIOVASCULAR: Regular rate and rhythm without murmurs, gallops, or rubs. RESPIRATORY: Clear to auscultation. Breath sounds equal bilaterally. No wheezes, rales, or rhonchi. GASTROINTESTINAL: Abdomen soft, non-tender, nondistended. EXTREMITIES: No edema or joint tenderness. BACK: Nontender without deformity or crepitance. No flank tenderness. NEURO: AOx3. SKIN: No rash or erythema of visible areas Initial Vital Signs Initial Vital Signs: Vital Signs Temperature 98.1 F 08/13/20 16:47 Pulse Rate 69 08/13/20 16:47 Respiratory Rate 16 08/13/20 16:47 Blood Pressure 125/71 08/13/20 16:47 Pulse Oximetry 100 08/13/20 16:47 Course Orders Ordered: ED Orders 08/13/20 19:12 Complete Blood Count AUTO DIFF Stat Comprehensive Metabolic Panel Stat Lipase Stat Partial Thromboplastin Time Stat Prothrombin Time INR Stat Vital Signs Vital signs: Vital Signs - 8 hr 08/13/20 19:30 Pulse Rate 67 Pulse Oximetry 100 MDM - Abdominal Pain Lab Data Result diagrams: 08/13/20 19:12 08/13/20 19:12 Labs: Lab Results 08/13/20 08/13/20 08/13/20 Range/Units 16:55 19:12 19:12 WBC 10.0 (4.5-11.0) X10^3/uL RBC 4.96 (4.0-5.2) X10^6/uL Hgb 13.4 (12.0-16.0) g/dL Hct 41.1 (36-46) % MCV 82.8 (80-100) fL MCH 26.9 (26-34) PG MCHC 32.5 (30-36) % RDW 16.5 H (11.6-14.8) % Plt Count 309 (150-400) X10^3/uL Neut % (Auto) 61.0 (50-75) % Lymph % (Auto) 29.7 (25-40) % [place] % (Auto) 6.1 (3-14) % Eos % (Auto) 2.4 (2-4) % Baso % (Auto) 0.8 (0-2) % Neut # (Auto) 6100 (7285-1325) /uL Lymph # (Auto) 3000 (3999-6353) /uL [place] # (Auto) 600 (0-900) /uL Eos # (Auto) 200 (0-450) /uL Baso # (Auto) 100 (0-100) /uL PT 12.0 (10.1-12.7) SECONDS INR 1.0 (0.9-1.3) APTT 34 D (26.4-36.2) SECONDS Sodium (137-145) mmol/L Potassium (3.4-5.1) mmol/L Chloride (98-107) mmol/L Carbon Dioxide (22-32) mmol/L BUN (7-17) mg/dL Creatinine (0.52-1.04) mg/dL Estimated GFR (>60) mL/min BUN/Creatinine Ratio (6-22) Glucose (70-100) mg/dL Calcium (8.4-10.2) mg/dL Total Bilirubin (0.2-1.3) mg/dL AST (14-36) IU/L ALT (<35) IU/L Alkaline Phosphatase (38-126) U/L Total Protein (6.3-8.2) g/dL Albumin (3.5-5.0) g/dL Globulin (1.7-4.1) g/dL Albumin/Globulin Ratio (1.0-2.8) Lipase (23-300) U/L Urine RBC None seen (0-5/HPF) Urine WBC 5-10/hpf H (0-5/HPF) Ur Squamous Epith Cells 5-10 /hpf H (0-5/HPF) Urine Bacteria None seen (None) Urine Mucus 2+ H (Negative) Ur Culture Indicated? Cult not indicated 08/13/20 Range/Units 19:12 WBC (4.5-11.0) X10^3/uL RBC (4.0-5.2) X10^6/uL Hgb (12.0-16.0) g/dL Hct (36-46) % MCV (80-100) fL MCH (26-34) PG MCHC (30-36) % RDW (11.6-14.8) % Plt Count (150-400) X10^3/uL Neut % (Auto) (50-75) % Lymph % (Auto) (25-40) % [place] % (Auto) (3-14) % Eos % (Auto) (2-4) % Baso % (Auto) (0-2) % Neut # (Auto) (7371-9801) /uL Lymph # (Auto) (2470-1236) /uL [place] # (Auto) (0-900) /uL Eos # (Auto) (0-450) /uL Baso # (Auto) (0-100) /uL PT (10.1-12.7) SECONDS INR (0.9-1.3) APTT (26.4-36.2) SECONDS Sodium 139 (137-145) mmol/L Potassium 3.9 (3.4-5.1) mmol/L Chloride 107 (98-107) mmol/L Carbon Dioxide 25 (22-32) mmol/L BUN 12 (7-17) mg/dL Creatinine 0.65 (0.52-1.04) mg/dL Estimated GFR > 60.0 (>60) mL/min BUN/Creatinine Ratio 18.5 (6-22) Glucose 96 (70-100) mg/dL Calcium 9.2 (8.4-10.2) mg/dL Total Bilirubin 0.5 (0.2-1.3) mg/dL AST 91 H (14-36) IU/L ALT 135 H (<35) IU/L Alkaline Phosphatase 108 (38-126) U/L Total Protein 8.3 H (6.3-8.2) g/dL Albumin 4.4 (3.5-5.0) g/dL Globulin 3.9 (1.7-4.1) g/dL Albumin/Globulin Ratio 1.1 (1.0-2.8) Lipase 71 (23-300) U/L Urine RBC (0-5/HPF) Urine WBC (0-5/HPF) Ur Squamous Epith Cells (0-5/HPF) Urine Bacteria (None) Urine Mucus (Negative) Ur Culture Indicated? Point of care testing: Point of Care Testing Test Results Negative Urine Dip Bedside Urine Glucose Negative Bedside Urine Bilirubin - Negative Bedside Urine Ketone - Negative Urine Specific [place] 1.030 Bedside Urine Occult Blood - Negative Bedside Urine pH 6.0 Bedside Urine Protein + 30 Bedside Urine Urobilinogen - Negative Bedside Urine Nitrite - Negative Bedside Urine Leukocytes - Negative Esterase MDM Narrative Medical decision making narrative: 25F with resolved LLQ pain and some WBCs on urine with labs that have normalized. [facility] faxed their labs which note WBC of 15. She's got no symptoms. She's had no fever. No signs of sepsis. No indication for CT. Will treat urine and give return precautions. Discharge Plan Departure Patient Disposition: Home Clinical Impression: UTI (urinary tract infection) Qualifiers: Urinary tract infection type: acute cystitis Hematuria presence: without hematuria Qualified Code(s): N30.00 - Acute cystitis without hematuria Instructions: DI for Urinary Tract Infection (UTI), DI for Abdominal Pain-Adult Activity Restrictions/Additional Instructions: *You have been diagnosed with [acute urinary tract infection, likely the cause of your elevated white blood cell count and episodes of left-sided flank pain] *What to do: *Take medications as directed: Prescription was sent to [facility] in [place] at your request *Follow up with your primary care provider in 2-3 days, call for an appointment. Let them know you were seen in the Emergency Department and that we ask that you be seen in follow up *Return to ER if you should have any new, worsening or concerning symptoms, such as [increasing pain, fever over 101 F, vomiting or other bothersome symptoms] Prescriptions: New sulfamethoxazole-trimethoprim [Bactrim DS] 800-160 mg tablet 1 tab PO BID 7 Days Qty: 14 RF: 0 No Action tramadol [Ultram] 50 mg tablet 50 mg PO Q6H PRN (Reason: pain) Qty: 7 RF: 0 albuterol sulfate [Ventolin HFA] 90 mcg/actuation HFA aerosol inhaler 1 puff INHALATION DIRECTED RF: 0 cetirizine [Zyrtec] 10 mg Tablet 10 mg PO DAILY RF: 0 ondansetron 4 mg tablet,disintegrating 4 mg PO Q6H PRN (Reason: nausea and vomiting) Qty: 7 RF: 0 dicyclomine 10 mg capsule 10 mg PO TID PRN (Reason: abdominal discomfort) Qty: 30 RF: 0 Referrals: Sapna Kovacs ARNP [Primary Care Provider] -
[2020-08-13 19:29] LABS: PTT Partial Thromboplastin Tim 34 SECONDS (26.4-36.2)
[2020-08-13 19:30] VITALS: PULSE 67; O2SAT 100
[2020-08-13 19:31] LABS: Alanine Aminotransferase 135 IU/L (<35); Albumin 4.4 g/dL (3.5-5.0); Albumin Globulin Ratio 1.1 (1.0-2.8); Alkaline Phosphatase 108 U/L (38-126); Aspartate Aminotransferase 91 IU/L (14-36); BUN Creatinine Ratio 18.5 (6-22); Bilirubin Total 0.5 mg/dL (0.2-1.3); Blood Urea Nitrogen 12 mg/dL (7-17); Calcium 9.2 mg/dL (8.4-10.2); Carbon Dioxide 25 mmol/L (22-32); Chloride 107 mmol/L (98-107); Estimated Glomerular Filt Rate > 60.0 mL/min (>60); Globulin 3.9 g/dL (1.7-4.1); Glucose 96 mg/dL (70-100); HEMOLYSIS < 15 (0-50); Lipase 71 U/L (23-300); Potassium 3.9 mmol/L (3.4-5.1); Sodium 139 mmol/L (137-145); Total Protein 8.3 g/dL (6.3-8.2)
== END 2020-08-13 19:54 | disposition home or self-care (01) ==
PROVIDERS: Emergency Medicine; Emergency Provider Emergency Medicine; Family Provider Nurse Practitioner Gerontology; PCP Nurse Practitioner Family
DX: N30.00 Acute cystitis without hematuria (principal); R10.9 Unspecified abdominal pain
CPT/HCPCS: 36415; 80053; 81003; 81015; 81025; 83690; 85025; 85610; 85730; 93005; 93010; 99281; 99283